=== PATIENT | female | born 1955 | race Caucasian/White ===

== ENCOUNTER 2016-05-05 11:11 | Outpatient (CLI) | payer OTHER | END 2016-05-05 11:12 | disposition home or self-care (01) | DX: R51 Headache (principal); F33.1 Major depressive disorder, recurrent, moderate; F41.9 Anxiety disorder, unspecified; G47.00 Insomnia, unspecified; F43.12 Post-traumatic stress disorder, chronic; F90.9 Attention-deficit hyperactivity disorder, unspecified type ==

== ENCOUNTER 2016-05-05 11:11 | Outpatient (CLI) | payer OTHER | END 2016-05-05 11:12 | disposition home or self-care (01) | DX: F33.1 Major depressive disorder, recurrent, moderate (principal); F41.9 Anxiety disorder, unspecified; G47.00 Insomnia, unspecified; F43.12 Post-traumatic stress disorder, chronic; F90.9 Attention-deficit hyperactivity disorder, unspecified type ==

== ENCOUNTER 2016-08-22 14:23 | Outpatient (CLI) | payer OTHER ==
--- NOTE | 2016-08-22 16:28 | Mammography Report ---
DIGITAL DIAGNOSTIC BILATERAL MAMMOGRAM: 08/22/2016 CLINICAL INDICATION: Intermittent left retroareolar pain. COMPARISON: 01/2015, 01/2014, 01/2007, 06/2006. TECHNIQUE: Bilateral CC, MLO, left true lateral views. A marker was placed at the site of maximal ten derness identified by the patient in the left periareolar breast. FINDINGS: The breasts again demonstrate heterogeneously dense fibroglandular parenchyma bilaterally. Coarse, typically benign calcifications are present. No suspicious masses, clustered microcalcificat ions, or regions of architectural distortion are identified. IMPRESSION: BENIGN FINDINGS. RECOMMENDATION: ROUTINE ANNUAL SCREENING UNLESS OTHERWISE CLINICALLY INDICATED. BIRADS CATEGORY 2-BENIGN FINDINGS. STANDARD QUALIFYING STATEMENTS 1. This examination was reviewed with the aid of Computer-Aided Detection (CAD). 2. A negative or benign imaging report should not delay biopsy if clinically suspicious findings are present. Consider surgical consultation if warranted. More than 5% of cancers are not identified by i maging. 3. Dense breasts may obscure an underlying neoplasm. JOB #: [id number] EXT JOB #:
== END 2016-08-22 14:24 | disposition home or self-care (01) ==
LOC: DI 14:23
PROVIDERS: ATTEND Physician Assistant
DX: N64.4 Mastodynia (principal); N63 Unspecified lump in breast
CPT/HCPCS: 77066

== ENCOUNTER 2016-10-30 09:47 | Outpatient (CLI) | payer OTHER | END 2016-10-30 09:48 | disposition home or self-care (01) | LOC: LAB.F 09:47 | PROVIDERS: ATTEND Psychiatry & Neurology Psychiatry | DX: F33.1 Major depressive disorder, recurrent, moderate (principal); F43.12 Post-traumatic stress disorder, chronic; F90.9 Attention-deficit hyperactivity disorder, unspecified type | CPT/HCPCS: 36415; 80178; 82565 ==

== ENCOUNTER 2016-12-08 12:19 | Outpatient (CLI) | payer OTHER ==
--- NOTE | 2016-12-08 15:18 | XRAY Report ---
TWO-VIEW LEFT SCAPULA: 12/08/2016 CLINICAL INDICATION: Pain. FINDINGS: Frontal and lateral views of the left scapula demonstrate no evidence of fracture. The vi sualized joint spaces are unremarkable. No radiopaque foreign body is seen in the soft tissues. IMPRESSION: NO EVIDENCE OF SCAPULAR FRACTURE. JOB #: [id number] EXT JOB #:[id number]
--- NOTE | 2016-12-08 15:19 | XRAY Report ---
TWO-VIEW LEFT SHOULDER: 12/08/2016 CLINICAL INDICATION: Pain. FINDINGS: AP and oblique views of the left shoulder demonstrate no evidence of fracture or dislocati on. The joint spaces are preserved. No radiopaque foreign body is seen in the soft tissues. IMPRESSION: NORMAL LEFT SHOULDER. JOB #: [id number] EXT JOB #:[id number]
== END 2016-12-08 12:20 | disposition home or self-care (01) ==
LOC: DI 12:19
PROVIDERS: ATTEND Nurse Practitioner Family
DX: M25.512 Pain in left shoulder (principal)

== ENCOUNTER 2017-08-13 14:01 | Outpatient (CLI) | payer OTHER ==
--- NOTE | 2017-08-16 07:10 | XRAY Report ---
THREE VIEW BILATERAL FEET: 08/13/2017 CLINICAL INDICATION: Pain. FINDINGS: AP, lateral, oblique views of bilateral feet are compared to previous left foot of 12/11/2015. Osteoarthritis of the left first metatarsophalangeal joint appears stable. There has been previous screw fusion of the right first metatarsophalangeal joint. No fracture or hardware complication is appreciated. Minimal plantar calcaneal spurring is present. IMPRESSION: STABLE OSTEOARTHRITIS OF THE LEFT FIRST METATARSOPHALANGEAL JOINT. SCREW FUSION OF THE RIGHT FIRST METATARSOPHALANGEAL JOINT. TD: 08/13/2017 15:50
== END 2017-08-13 14:02 | disposition home or self-care (01) ==
LOC: DI 14:01
PROVIDERS: ATTEND Podiatrist
DX: M19.072 Primary osteoarthritis, left ankle and foot (principal); M79.671 Pain in right foot

== ENCOUNTER 2017-09-07 12:22 | Outpatient (CLI) | END 2017-09-07 12:23 | disposition home or self-care (01) ==

== ENCOUNTER 2017-09-08 11:17 | Outpatient (CLI) | payer OTHER ==
--- NOTE | 2017-09-10 10:42 | Mammography Report ---
Procedure Date: 09/08/2017 Accession Number: [id number] / [id number] Procedure: NATALI - Screening Mammo Dig Bilat CPT Code: FULL RESULT: EXAM: Screening Mammo Dig Bilat DATE: 09/08/2017 11:32 AM CLINICAL HISTORY: 62-year-old with family history of breast cancer, history of benign biopsy for screening TECHNIQUE: Bilateral CC and MLO views were obtained. COMPARISON: 08/22/2016, 02/05/2015, 01/31/2014 FINDINGS: The breasts demonstrate heterogeneously dense fibroglandular parenchyma bilaterally. Coarse, typically benign calcifications are present. No suspicious masses, clustered microcalcifications, or regions of architectural distortion are identified. IMPRESSION: Benign findings RECOMMENDATION: Routine annual screening unless otherwise clinically indicated. BIRADS CATEGORY 2: Benign findings STANDARD QUALIFYING STATEMENTS: 1. This examination was reviewed with the aid of Computer-Aided Detection (CAD). 2. A negative or benign imaging report should not delay biopsy if clinically suspicious findings are present. Consider surgical consultation if warrented. More than 5% of cancers are not identified by imaging. 3. Dense breasts may obscure an underlying neoplasm.
== END 2017-09-08 11:18 | disposition home or self-care (01) ==
LOC: DI 11:17
PROVIDERS: ATTEND Physician Assistant
DX: Z12.31 Encounter for screening mammogram for malignant neoplasm of breast (principal); Z80.3 Family history of malignant neoplasm of breast
CPT/HCPCS: 77067

== ENCOUNTER 2017-12-07 11:54 | Outpatient (CLI) | payer OTHER ==
--- NOTE | 2017-12-07 16:09 | XRAY Report ---
Reason: BL HAND, ARM ELBOW PAIN Procedure Date: 12/07/2017 Accession Number: [id number] / [id number] Procedure: XR - Hand 3 View BILAT CPT Code: FULL RESULT: EXAMS: 1. Right Hand Radiography 2. Left Hand Radiography EXAM DATE: 12/07/2017 12:36 PM. CLINICAL HISTORY: BL HAND, ARM ELBOW PAIN. COMPARISON: None. TECHNIQUE: 3 views each hand. FINDINGS: Right: There is no fracture or dislocation. Bones appear qualitatively osteopenic. The patient is status post right trapeziectomy with mild soft tissue density in the region. There is approximately 3 mm of ulnar negative variance. Left: There is no fracture or dislocation. The patient is status post left trapeziectomy. There is approximately 2 mm of borderline negative ulnar deviation. IMPRESSION: Status post bilateral removal of the trapezium. Borderline ulnar negative deviation. RADIA
--- NOTE | 2017-12-07 16:43 | XRAY Report ---
Reason: BL HAND, ARM ELBOW PAIN Procedure Date: 12/07/2017 Accession Number: [id number] / [id number] Procedure: XR - Elbow 3 View BILAT CPT Code: FULL RESULT: EXAM: 1. RIGHT ELBOW RADIOGRAPHY 2. LEFT ELBOW RADIOGRAPHY EXAM DATE: 12/07/2017 12:36 PM. CLINICAL HISTORY: Bilateral hand, arm and elbow pain. COMPARISON: None. TECHNIQUE: 3 views each elbow. FINDINGS: Right: Bones: Normal. No fractures or bone lesions. Joints: Normal. No effusion. No subluxation. Soft Tissues: Normal. No soft tissue swelling. Left: Bones: Normal. No fractures or bone lesions. Joints: Normal. No effusion. No subluxation. Soft Tissues: Normal. No soft tissue swelling. IMPRESSION: Normal bilateral elbow radiography. RADIA
--- NOTE | 2017-12-07 16:43 | XRAY Report ---
Reason: BL HAND, ARM ELBOW PAIN Procedure Date: 12/07/2017 Accession Number: [id number] / [id number] Procedure: XR - Forearm BILAT CPT Code: FULL RESULT: EXAM: BILATERAL FOREARM RADIOGRAPHY EXAM DATE: 12/07/2017 12:36 PM. CLINICAL HISTORY: Bilateral hand, arm and elbow pain. COMPARISON: None. TECHNIQUE: 2 views. FINDINGS: Bones: Status post trapezium removal. No fractures or bone lesions. Joints: Normal. No effusions or subluxations in the visualized wrist or elbow joints. Soft Tissues: Normal. No soft tissue swelling. IMPRESSION: No acute fracture or dislocation. RADIA
--- NOTE | 2017-12-07 16:43 | XRAY Report ---
Reason: BL HAND, ARM ELBOW PAIN Procedure Date: 12/07/2017 Accession Number: [id number] / [id number] Procedure: XR - Wrist 3 View BILAT CPT Code: FULL RESULT: EXAM: BILATERAL WRIST RADIOGRAPHY EXAM DATE: 12/07/2017 12:36 PM. CLINICAL HISTORY: Bilateral hand, arm, and elbow pain. COMPARISON: None. TECHNIQUE: 3 views. FINDINGS: There is no fracture or dislocation and there is no bone lesion. The trapezium has been removed bilaterally. There is bilateral borderline negative ulnar deviation, approximately 3 mm. IMPRESSION: Bilateral borderline ulnar negative deviation status post bilateral trapezium removal. RADIA
== END 2017-12-07 11:55 | disposition home or self-care (01) ==
LOC: DI 11:54
PROVIDERS: ATTEND Nurse Practitioner Family
DX: M79.642 Pain in left hand (principal); M79.641 Pain in right hand; M25.522 Pain in left elbow; M25.521 Pain in right elbow

== ENCOUNTER 2018-01-03 10:18 | Emergency (ER) | payer OTHER ==
[2018-01-03 11:03] LABS: BASOPHILS # (AUTO) 0.1 10^3/uL (0.0-0.1); BASOPHILS % (AUTO) 1.9 %; EOSINOPHILS # (AUTO) 0.1 10^3/uL (0.0-0.7); EOSINOPHILS % (AUTO) 3.4 %; HGB - HEMOGLOBIN 12.7 g/dL (12.0-16.0); LYMPHOCYTES % (AUTO) 24.6 %; MEAN CORPUSCULAR HEMOGLOBIN 32.4 pg (27.0-31.0); MEAN CORPUSCULAR HGB CONC 34.6 g/dL (32.0-36.0); MEAN CORPUSCULAR VOLUME 93.7 fL (81.0-99.0); MEAN PLATELET VOLUME 7.5 fL (7.9-10.8); MONOCYTES # (AUTO) 0.4 10^3/uL (0.0-1.0); MONOCYTES % (AUTO) 9.3 %; NEUTROPHILS # (AUTO) 2.5 10^3/uL (1.5-6.6); NEUTROPHILS % (AUTO) 60.8 %; PLT - PLATELET COUNT 224 10^3/uL (130-450); RED BLOOD COUNT 3.91 10^6/uL (4.20-5.40); RED CELL DISTRIBUTION WIDTH 13.2 % (12.0-15.0); WHITE BLOOD COUNT 4.1 x10^3/uL (4.8-10.8)
[2018-01-03 11:24] LABS: ALBUMIN 4.1 g/dL (3.2-5.5); ALBUMIN/GLOBULIN RATIO 1.5 (1.0-2.2); BILIRUBIN,TOTAL 0.5 mg/dL (0.2-1.0); CALCIUM 9.2 mg/dL (8.5-10.3); CREATININE 0.8 mg/dL (0.4-1.0); TOTAL PROTEIN 6.8 g/dL (6.7-8.2)
[2018-01-03 12:20] LABS: BILIRUBIN,URINE NEGATIVE (NEGATIVE); GLUCOSE, URINE (UA) NEGATIVE (NEGATIVE); KETONES,URINE (UA) NEGATIVE (NEGATIVE); LEUKOCYTE ESTERASE, URINE NEGATIVE (NEGATIVE); NITRITE,URINE NEGATIVE (NEGATIVE); OCCULT BLOOD,URINE TRACE-LYSE (NEGATIVE); PROTEIN,URINE NEGATIVE (NEGATIVE); UROBILINOGEN,URINE 0.2 (NORMAL) E.U./dL (NORMAL)
[2018-01-03 12:28] LABS: CLARITY,URINE CLEAR (CLEAR)
[2018-01-03 12:39] VITALS: BP 124/70
--- NOTE | 2018-01-03 13:09 | ED Physician Documentation ---
PD HPI ABD PAIN - Stated complaint Stated Complaint: ABD PX/BLOOD IN STOOL - Chief complaint Chief Complaint: Abd Pain - History obtained from History obtained from: Patient - History of Present Illness Timing - onset: Other (For the last few months she has been taking a lot of ibuprofen because of arm pain related to a surgery she had on her right arm. Over the last 5 days for she developed sudden onset headache which cleared and then developed stomach upset with bloating and fullness, feeling like food is coming up into her chest associated with now 2 days of dark and tarry stools, but she started pepto about that time. She is never had an ulcer. She is never had upper endoscopy. She has had a colonoscopy within the year that per her report was normal. She does not drink alcohol.) Review of Systems Constitutional: denies: Fever, Chills Cardiac: denies: Chest pain / pressure, Palpitations Respiratory: denies: Dyspnea, Cough GI: reports: Abdominal Pain, Bloody / black stool. 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 05/28/15 Propranolol [Inderal] 20 mg DAILY 05/28/15 05/28/15 tiZANidine [Zanaflex] 2 tab QPM 05/28/15 05/28/15 traZODone [Desyrel] 50 mg DAILY 05/28/15 05/28/15 Omeprazole 20 mg PO DAILY #30 tablet. 01/03/18 - Allergies Allergies/Adverse Reactions: Allergies Allergy/AdvReac Type Severity Reaction Status Date / Time No Known Drug Allergies Allergy Verified 05/11/14 01:39 - Social History Does the pt smoke?: No Does the pt drink ETOH?: Yes - POLST Patient has POLST: No PD ED PE NORMAL - Vitals Vital signs reviewed: Yes - General General: Alert and oriented X 3, No acute distress - HEENT HEENT: PERRL, EOMI - Neck Neck: Supple, no meningeal sign, No bony TTP - Cardiac Cardiac: RRR, No murmur - Respiratory Respiratory: No respiratory distress, Clear bilaterally - Abdomen Abdomen: Soft, Non tender - Rectal Rectal: Other (with Deepa RN, dark but guaiac neg stool, QC pass) - Back Back: No CVA TTP, No spinal TTP - Derm Derm: Normal color, Warm and dry - Extremities Extremities: No edema, No calf tenderness / cord - Neuro Neuro: Alert and oriented X 3, Normal speech - Psych Psych: Normal mood, Normal affect Results - Vitals Vitals: Vital Signs - 24 hr 01/03/18 01/03/18 10:27 12:37 Temperature 36.4 C L 36.3 C L Heart Rate 71 70 Respiratory 14 14 Rate Blood Pressure 122/73 124/70 O2 Saturation 100 100 Oxygen O2 Source Room air - Labs Labs: Laboratory Tests 01/03/18 01/03/18 01/03/18 10:55 10:55 10:55 WBC 4.1 L RBC 3.91 L Hgb 12.7 Hct 36.6 L MCV 93.7 MCH 32.4 H MCHC 34.6 RDW 13.2 Plt Count 224 MPV 7.5 L Neut # (Auto) 2.5 Lymph # (Auto) 1.0 L [place] # (Auto) 0.4 Eos # (Auto) 0.1 Baso # (Auto) 0.1 Absolute Nucleated RBC 0.00 Nucleated RBC % 0.0 Sodium 138 Potassium 3.7 Chloride 102 Carbon Dioxide 30 Anion Gap 6.0 BUN 10 Creatinine 0.8 Estimated GFR (MDRD) 72 L Glucose 86 Calcium 9.2 Total Bilirubin 0.5 AST 18 ALT 15 Alkaline Phosphatase 56 Total Protein 6.8 Albumin 4.1 Globulin 2.7 Albumin/Globulin Ratio 1.5 Lipase 23 Urine Color Urine Clarity Urine pH Ur Specific [place] Urine Protein Urine Glucose (UA) Urine Ketones Urine Occult Blood Urine Nitrite Urine Bilirubin Urine Urobilinogen Ur Leukocyte Esterase Ur Microscopic Review Urine Culture Comments [place] Blood Type O POSITIVE Antibody Screen NEGATIVE 01/03/18 01/03/18 01/03/18 12:16 13:08 13:08 WBC RBC Hgb 12.7 Hct 37.2 MCV MCH MCHC RDW Plt Count MPV Neut # (Auto) Lymph # (Auto) [place] # (Auto) Eos # (Auto) Baso # (Auto) Absolute Nucleated RBC Nucleated RBC % Sodium Potassium Chloride Carbon Dioxide Anion Gap BUN Creatinine Estimated GFR (MDRD) Glucose Calcium Total Bilirubin AST ALT Alkaline Phosphatase Total Protein Albumin Globulin Albumin/Globulin Ratio Lipase Urine Color YELLOW Urine Clarity CLEAR Urine pH 8.0 H Ur Specific [place] 1.010 Urine Protein NEGATIVE Urine Glucose (UA) NEGATIVE Urine Ketones NEGATIVE Urine Occult Blood TRACE-LYSE Urine Nitrite NEGATIVE Urine Bilirubin NEGATIVE Urine Urobilinogen 0.2 (NORMAL) Ur Leukocyte Esterase NEGATIVE Ur Microscopic Review NOT INDICATED Urine Culture Comments NOT INDICATED [place] 0.44 Blood Type Antibody Screen - Rads (name of study) Ct Head Radiology: EMP read contemporaneously (Normal) PD MEDICAL DECISION MAKING - ED course ED course: 62-year-old woman that presents with symptoms that sound like NSAID induced gastritis but it was preceded by a sudden onset headache which is resolved. It is concerning that she has dark stools but she is guaiac negative now with dark stool in the vault suggesting that it is probably due to Pepto-Bismol. Departure - Departure Disposition: 01 Home, Self Care Clinical Impression: Abdominal pain Qualifiers: Abdominal location: epigastric Qualified Code(s): R10.13 - Epigastric pain Gastritis Qualifiers: Gastritis type: unspecified gastritis Gastritis bleeding: without bleeding Headache Qualifiers: Headache type: unspecified Headache chronicity pattern: acute headache Intractability: not intractable Qualified Code(s): R51 - Headache Condition: Good Record reviewed to determine appropriate education?: Yes Instructions: ED Gastritis Prescriptions: Omeprazole 20 mg PO DAILY #30 tablet. Comments: As discussed there is no evidence of bleeding, the dark stools are probably from the Pepto-Bismol. The symptoms themselves are probably from long-term ibuprofen use. Please stop using ibuprofen, you can use Tylenol instead. The Prilosec should help after a few days. Follow-up with your doctor for further evaluation and treatment. Return if worse.
[2018-01-03] MEDS ORDERED: PANTOPRAZOLE 40 MG TABLET PO STA (13:14)
[2018-01-03 13:26] LABS: HGB - HEMOGLOBIN 12.7 g/dL (12.0-16.0)
[2018-01-03 13:53] LABS: LITHIUM 0.44 mmol/L
--- NOTE | 2018-01-03 14:12 | CT Report ---
Reason: resolved sudden headache Procedure Date: 01/03/2018 Accession Number: [id number] / [id number] Procedure: CT - Head W/O CPT Code: FULL RESULT: EXAM: CT HEAD EXAM DATE: 01/03/2018 01:28 PM. CLINICAL HISTORY: Resolved sudden headache. COMPARISON: None. TECHNIQUE: Multiaxial CT images were obtained from the foramen magnum to the vertex. Reformats: Sagittal and coronal. IV contrast: None. In accordance with CT protocol optimization, one or more of the following dose reduction techniques were utilized for this exam: automated exposure control, adjustment of mA and/or KV based on patient size, or use of iterative reconstructive technique. FINDINGS: Parenchyma: No intraparenchymal hemorrhage. No evidence of mass, midline shift, or CT findings of infarction. Cerda-white differentiation is distinct. Extraaxial Spaces: Normal for age. No subdural or epidural collections identified. Ventricles: Normal in size and position. Sinuses and Orbits: Imaged paranasal sinuses, orbits, and mastoids show no significant abnormality. Bones: No evidence of fracture or calvarial defect. Other: None. IMPRESSION: No acute intracranial abnormality. RADIA
== END 2018-01-03 14:43 | disposition home or self-care (01) ==
LOC: ED 10:18
DX: K29.70 Gastritis, unspecified, without bleeding (principal); R51 Headache; Z79.1 Long term (current) use of non-steroidal anti-inflammatories (NSAID)
CPT/HCPCS: 36415; 70450; 80053; 80178; 81003; 83690; 85014; 85018; 85025; 86850; 86900; 86901; 93005; 99283; A9270; 81001; 87086

== ENCOUNTER 2018-03-22 08:00 | Outpatient (CLI) | payer OTHER | END 2018-03-22 23:59 | disposition home or self-care (01) | LOC: LAB.R 08:00 | PROVIDERS: ATTEND Registered Nurse | DX: R19.5 Other fecal abnormalities (principal) | CPT/HCPCS: 82710 ==

== ENCOUNTER 2018-06-29 13:45 | Outpatient (CLI) | payer OTHER ==
[2018-06-29 18:28] LABS: LITHIUM 0.35 mmol/L
== END 2018-06-29 13:46 | disposition home or self-care (01) ==
LOC: LAB.F 13:45
PROVIDERS: ATTEND Psychiatry & Neurology Psychiatry
DX: F33.9 Major depressive disorder, recurrent, unspecified (principal); F43.10 Post-traumatic stress disorder, unspecified; F90.9 Attention-deficit hyperactivity disorder, unspecified type; G47.00 Insomnia, unspecified
CPT/HCPCS: 36415; 80178

== ENCOUNTER 2018-09-09 16:07 | Emergency (ER) | payer OTHER ==
--- NOTE | 2018-09-09 16:17 | ED Physician Documentation ---
History of Present Illness - Stated complaint Stated Complaint: LT HIP PX - Chief complaint Chief Complaint: Ext Problem - History obtained from History obtained from: Patient - History of Present Illness Timing: Yesterday - Additonal information Additional information: Patient is a 63-year-old female presenting with left hip pain after walking up her stairs last night. Patient denies any fall or trauma, but reports that she felt it "slip".Patient reports swelling to the area that has now resolved but no other overlying skin changes. Patient reports that she has been able to bear weight, however, with pain. Patient denies other sensation, strength, or range of motion changes to the left lower extremity. Patient also denies any complications with urination or bowel movements. Patient denies abdominal pain. Patient was seen her primary care physician earlier today and directed to the ED for further evaluation. No other improving or worsening factors noted. 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 05/28/15 Propranolol [Inderal] 20 mg DAILY 05/28/15 05/28/15 tiZANidine [Zanaflex] 2 tab QPM 05/28/15 05/28/15 traZODone [Desyrel] 50 mg DAILY 05/28/15 05/28/15 Omeprazole 20 mg PO DAILY #30 tablet. 01/03/18 Acetaminophen/Cod 300/30 [Tylenol 1 each PO Q4-6H PRN #12 tablet 09/09/18 #3] - Allergies Allergies/Adverse Reactions: Allergies Allergy/AdvReac Type Severity Reaction Status Date / Time acetaminophen [From Vicodin] Allergy Itching Verified 09/09/18 16:14 hydrocodone [From Vicodin] Allergy Itching Verified 09/09/18 16:14 meperidine [From Demerol] Allergy Itching Verified 09/09/18 16:14 morphine Allergy Itching Verified 09/09/18 16:14 - Social History Does the pt smoke?: No Does the pt drink ETOH?: Yes - POLST Patient has POLST: No PD ED PE NORMAL - Vitals Vital signs reviewed: Yes - General General: Alert and oriented X 3, No acute distress, Well developed/nourished - HEENT HEENT: Atraumatic, Moist mucous membranes - Cardiac Cardiac: RRR, No murmur - Respiratory Respiratory: No respiratory distress, Clear bilaterally - Abdomen Abdomen: Soft, Non tender, Non distended, Other (Pelvis stable and nontender) - Derm Derm: Normal color, Warm and dry, No rash - Extremities Extremities: No deformity, Normal ROM s pain, Other (Mild decreased ROM at left hip due to pain). No: No tenderness to palpate (Mildly tender to the left greater trochanter) - Neuro Neuro: Alert and oriented X 3, No motor deficit, No sensory deficit - Psych Psych: Normal mood, Normal affect Results - Vitals Vitals: Vital Signs - 24 hr 09/09/18 09/09/18 16:08 17:30 Temperature 36.6 C 36.8 C Heart Rate 69 60 Respiratory 14 16 Rate Blood Pressure 154/75 H 148/80 H O2 Saturation 100 100 Oxygen O2 Source Room air PD MEDICAL DECISION MAKING - ED course Complexity details: reviewed results, re-evaluated patient, considered differential, d/w patient ED course: Patient presenting with left hip discomfort and concern for a slipping sensation without any particular fall or trauma. Do not find any overlying skin changes to the area including ecchymosis, swelling, rash, or erythema. Have low suspicion for joint infection at this time. Patient is bearing weight, walking, and has decent range of motion. Also have low suspicion for fracture dislocation, will obtain plain films to further evaluate. Plain films returned unremarkable. Patient may also be experiencing muscle strain or radiculopathy. Have low suspicion for back issues including vertebral or spinal cord, as well as cauda equina given lack of incontinence, sensation changes to groin or leg. Patient does not tolerate pain medications well, except for Tylenol 3 which was provided in the ED and prescription given for home. Discussed other supportive cares, return precautions, and follow-up. Patient voiced understanding and is comfortable with discharge plan. Departure - Departure Disposition: 01 Home, Self Care Clinical Impression: Hip pain, left Condition: Good Instructions: ED Strain Muscle Ext Follow-Up: Olesya Dewitt PA [Primary Care Provider] - Within 3 Days Prescriptions: Acetaminophen/Cod 300/30 [Tylenol #3] 1 each PO Q4-6H PRN #12 tablet PRN Reason: Pain Comments: Take Tylenol 3 as prescribed. Please be aware of taking any additional Tylenol and not going over the maximum daily dose of Tylenol. Recommend taking with small amount of food to avoid upset stomach. Also recommend stretching, massage, heat application and follow-up with your primary care physician in the next 2 to 3 days. Return to ED sooner if experience new injury, worsening symptoms, or have other concerns.
--- NOTE | 2018-09-09 17:29 | XRAY Report ---
Reason: pain in left hip and greater trochanter Procedure Date: 09/09/2018 Accession Number: [id number] / [id number] Procedure: XR - Hip w/Pelvis 2-3V LT CPT Code: FULL RESULT: EXAM: LEFT HIP RADIOGRAPHY EXAM DATE: 09/09/2018 04:53 PM. CLINICAL HISTORY: Pain in left hip and greater trochanter. COMPARISON: HIP 2 VIEW RT 04/06/2013 10:01 AM. TECHNIQUE: 2 views. FINDINGS: Bones: No acute fractures. Joints: No dislocation. The hip joint space is preserved. Soft Tissues: Unremarkable IMPRESSION: No acute radiographic abnormalities. RADIA
[2018-09-09] MEDS ORDERED: ACETAMINOPHEN/CODEINE 300 MG/30 MG TABLET PO STA (17:40)
[2018-09-09 17:51] VITALS: BP 134/70
== END 2018-09-09 17:54 | disposition home or self-care (01) ==
LOC: ED 16:07
DX: M25.552 Pain in left hip (principal)
CPT/HCPCS: 73502; 99283; A9270

== ENCOUNTER 2018-09-23 08:14 | Outpatient (CLI) | payer OTHER ==
--- NOTE | 2018-09-27 08:25 | DEXA Report ---
Reason: ASYMPTOMATIC MENOPAUSAL STATE Procedure Date: 09/23/2018 Accession Number: [id number] / [id number] Procedure: DEX - Dexa Spine and/or Hip CPT Code: FULL RESULT: EXAM: Dexa Spine and/or Hip DATE: 09/23/2018 8:36 AM CLINICAL HISTORY: ASYMPTOMATIC MENOPAUSAL STATE TECHNIQUE: Dual energy x-ray absorptiometry (DXA) was performed on a [employer] System. Regions measured are the AP Spine, femoral neck, and if needed forearm. COMPARISON: None. In accordance with the International Society for Clinical Densitometry (ISCD) guidelines, data from previous exams may be reanalyzed using current recommendations and techniques. This is done to allow a more accurate basis for comparison with the current study. FINDINGS: The data for the lumbar spine is as follows: BMD (g/cm/cm) T-SCORE Z-SCORE REGION L1 0.702 -3.6 -1.6 L2 0.759 -3.7 -1.7 L3 0.907 -2.4 -0.5 L4 0.803 -3.3 -1.4 TOTAL 0.795 -3.2 -1.3 NOTE: All evaluable vertebrae are used for classification The data for the hip is as follows: BMD (g/cm/cm) T-SCORE Z-SCORE REGION Neck 0.718 -2.3 -0.6 TOTAL 0.749 -2.1 -0.6 NOTE: The femoral neck or total proximal femur, whichever is lowest, is used for classification. IMPRESSION: THE WHO CLASSIFICATION BASED ON THE INTERNATIONAL REFERENCE STANDARD IS OSTEOPOROSIS. THE FRACTURE RISK IS HIGH. RECOMMENDATION: Patients with diagnosis of osteoporosis or osteopenia should have regular bone mineral density assessment. For those eligible for Medicare, routine testing is allowed once every 2 years. Testing frequency can be increased for patients who have rapidly progressing disease or for those who are receiving medical therapy to restore bone mass. COMMENT: World Health Organization (WHO) definitions for osteoporosis and osteopenia: NORMAL BMD: T-score at -1.0 or higher, fracture risk is low OSTEOPENIA BMD: T-score between -1.0 and -2.5, fracture risk is increased. OSTEOPOROSIS BMD: T-score at -2.5 or lower, fracture risk is high. National Osteoporosis Foundation recommends: 1. Obtain adequate dietary calcium (at least 1200 mg per day) and vitamin D (400-800 international units per day). 2. Participate, as appropriate, in regular weightbearing and muscle-strengthening exercise. 3. Avoid tobacco use and reduce alcohol and caffeine intake. 4. For more detailed information see the website at www.NOF.org.
== END 2018-09-23 08:15 | disposition home or self-care (01) ==
LOC: DI 08:14
PROVIDERS: ATTEND Nurse Practitioner Family
DX: M81.0 Age-related osteoporosis without current pathological fracture (principal); Z78.0 Asymptomatic menopausal state
CPT/HCPCS: 77080

== ENCOUNTER 2019-01-07 10:09 | Outpatient (CLI) | payer OTHER ==
--- NOTE | 2019-01-07 11:50 | Mammography Report ---
Reason: FREE MAMMO FOR CERTIFICATION PER OXANA Procedure Date: 01/07/2019 Accession Number: [id number] / [id number] Procedure: [facility]GS - Screening Mammo Dig Bilat CPT Code: FULL RESULT: EXAM: Screening Mammo Dig Bilat DATE: 01/07/2019 10:39 AM CLINICAL HISTORY: Routine screening TECHNIQUE: (B) - Bilateral CC and MLO views were obtained. COMPARISON: 09/08/2017, 08/22/2016, 02/05/2015, 01/31/2014. PARENCHYMAL PATTERN: (D) - The breasts demonstrate heterogeneously dense fibroglandular parenchyma bilaterally. FINDINGS: No significant interval change. There are no suspicious masses, calcifications, or areas of distortion. IMPRESSION: Negative examination. BI-RADS category 1. RECOMMENDATION: (ANNUAL) - Recommend routine annual screening mammography. BI-RADS CATEGORY: (1) - Negative. STANDARD QUALIFYING STATEMENTS: 1. This examination was not reviewed with the aid of Computer-Aided Detection (CAD). 2. A negative or benign imaging report should not preclude biopsy if clinically suspicious findings are present. 3. Dense breasts may obscure an underlying neoplasm. 4. This examination was reviewed without the aid of 3D breast imaging (tomosynthesis).
== END 2019-01-07 10:10 | disposition home or self-care (01) ==
LOC: DI.S 10:09
PROVIDERS: ATTEND Physician Assistant
DX: Z12.31 Encounter for screening mammogram for malignant neoplasm of breast (principal)
CPT/HCPCS: 77067

== ENCOUNTER 2019-02-08 11:11 | Outpatient (CLI) | payer OTHER ==
[2019-02-08 17:33] LABS: ALBUMIN 4.6 g/dL (3.2-5.5); ALBUMIN/GLOBULIN RATIO 1.7 (1.0-2.2); BILIRUBIN,TOTAL 0.6 mg/dL (0.2-1.0); CALCIUM 9.9 mg/dL (8.5-10.3); CREATININE 1.1 mg/dL (0.4-1.0); TOTAL PROTEIN 7.3 g/dL (6.7-8.2)
[2019-02-08 17:43] LABS: THYROID STIMULATING HORMONE 1.33 uIU/mL (0.34-5.60)
[2019-02-08 17:45] LABS: FREE T4 (FREE THYROXINE) 0.94 ng/dL (0.58-1.64)
[2019-02-09 06:13] LABS: ESTRADIOL <15 pg/mL; PROGESTERONE 2.9 ng/mL
== END 2019-02-08 11:12 | disposition home or self-care (01) ==
LOC: LAB.S 11:11
PROVIDERS: ATTEND Naturopath
DX: Z00.00 Encounter for general adult medical examination without abnormal findings (principal); E03.9 Hypothyroidism, unspecified; E34.9 Endocrine disorder, unspecified; R53.83 Other fatigue; N95.1 Menopausal and female climacteric states; R68.82 Decreased libido
CPT/HCPCS: 36415; 80053; 82306; 82626; 82670; 84144; 84439; 84443; 84481

== ENCOUNTER 2019-03-29 13:07 | Outpatient (CLI) | payer MEDICARE ==
--- NOTE | 2019-03-29 15:49 | Ultrasound Report ---
Reason: FAM HX OF OVARIAN CANCER Procedure Date: 03/29/2019 Accession Number: [id number] / [id number] Procedure: US - Pelvic w/Transvaginal CPT Code: Final Report FULL RESULT: EXAM: PELVIC ULTRASOUND EXAM DATE: 03/29/2019 02:41 PM. CLINICAL HISTORY: Family history of ovarian cancer. COMPARISON: None. TECHNIQUE: Realtime transabdominal pelvic scan performed to identify the uterus and adnexa and as an overview of other pelvic structures, followed by transvaginal scan to provide greater detail of the uterus and adnexa, with static image documentation. FINDINGS: Uterus: 7.9 x 3.6 x 4.7 cm, volume 72 cc. Anteverted position. The uterine body is within normal limits. Masses: None within the uterine body. Endometrium: 10 mm. Normal within the body. Cervix: Apparently arising from the endocervix is a heterogeneous partially hyperechoic partially cystic mass with apparent internal vascularity by color Doppler which measures at least 1.5 x 1.5 x 1.2 cm and appears to have a stalk arising from the cervix. Right Ovary: 2.2 x 1.0 x 1.3 cm, volume 1.4 cc. Normal echotexture and blood flow. Left Ovary: 1.3 x 1.0 x 1.2 cm, volume 0.8 cc. A solid echogenic appearing 0.8 cm focus within the left ovary with echogenic shadowing is noted, possibly a calcification but sonographically indeterminate. Free Fluid: None. Other: None. IMPRESSION: Apparent endocervical mass as described. Recommend tissue sampling. Indeterminate echogenic focus within the left ovary. RADIA
== END 2019-03-29 13:08 | disposition home or self-care (01) ==
LOC: DI 13:07
PROVIDERS: ATTEND Obstetrics & Gynecology
DX: R93.89 Abnormal findings on diagnostic imaging of other specified body structures (principal); Z80.41 Family history of malignant neoplasm of ovary
CPT/HCPCS: 76830; 76856

== ENCOUNTER 2019-03-30 10:02 | Outpatient (CLI) | payer MEDICARE ==
[2019-03-30 16:59] LABS: BASOPHILS # (AUTO) 0.1 10^3/uL (0.0-0.1); BASOPHILS % (AUTO) 1.3 %; EOSINOPHILS # (AUTO) 0.1 10^3/uL (0.0-0.7); HGB - HEMOGLOBIN 12.2 g/dL (12.0-16.0); LYMPHOCYTES # (AUTO) 1.5 10^3/uL (1.5-3.5); LYMPHOCYTES % (AUTO) 32.6 %; MEAN CORPUSCULAR HEMOGLOBIN 31.4 pg (27.0-31.0); MEAN CORPUSCULAR HGB CONC 31.9 g/dL (32.0-36.0); MEAN CORPUSCULAR VOLUME 98.2 fL (81.0-99.0); MONOCYTES # (AUTO) 0.5 10^3/uL (0.0-1.0); MONOCYTES % (AUTO) 10.2 %; NEUTROPHILS # (AUTO) 2.4 10^3/uL (1.5-6.6); NEUTROPHILS % (AUTO) 52.9 %; PLT - PLATELET COUNT 206 10^3/uL (130-450); RED BLOOD COUNT 3.89 10^6/uL (4.20-5.40); RED CELL DISTRIBUTION WIDTH 12.6 % (12.0-15.0); WHITE BLOOD COUNT 4.6 x10^3/uL (4.8-10.8)
[2019-03-30 17:19] LABS: ALBUMIN 4.2 g/dL (3.2-5.5); ALBUMIN/GLOBULIN RATIO 1.7 (1.0-2.2); ALKALINE PHOSPHATASE 43 IU/L (42-121); ALT ALANINE AMINOTRANSFERASE 19 IU/L (10-60); AST ASPARTATE AMINOTRANSFERASE 18 IU/L (10-42); BILIRUBIN,TOTAL 0.6 mg/dL (0.2-1.0); BUN - BLOOD UREA NITROGEN 22 mg/dL (6-20); CALCIUM 9.1 mg/dL (8.5-10.3); CARBON DIOXIDE - CO2 28 mmol/L (21-32); CHLORIDE 102 mmol/L (101-111); CHOL/HDL RATIO 2.5 (<4.4); CHOLESTEROL 165 mg/dL; CREATININE 0.9 mg/dL (0.4-1.0); GFR - MDRD 63 (>89); GLUCOSE 92 mg/dL (70-100); HDL CHOLESTEROL 65 mg/dL; LDL CHOLESTEROL,CALCULATED 89 mg/dL; LDL/HDL RATIO 1.4 (<4.4); SODIUM 135 mmol/L (135-145); TOTAL PROTEIN 6.7 g/dL (6.7-8.2); VLDL CHOLESTEROL 11 mg/dL
[2019-03-30 17:27] LABS: THYROID STIMULATING HORMONE 1.16 uIU/mL (0.34-5.60)
[2019-03-30 17:29] LABS: FREE T4 (FREE THYROXINE) 0.8 ng/dL (0.58-1.64)
== END 2019-03-30 10:03 | disposition home or self-care (01) ==
LOC: LAB.S 10:02
PROVIDERS: ATTEND Physician Assistant Medical
DX: Z51.81 Encounter for therapeutic drug level monitoring (principal); Z79.899 Other long term (current) drug therapy; R41.3 Other amnesia; Z83.49 Family history of other endocrine, nutritional and metabolic diseases; E03.9 Hypothyroidism, unspecified
CPT/HCPCS: 36415; 80053; 80061; 83721; 84439; 84443; 84481; 85025

== ENCOUNTER 2019-04-18 10:21 | Outpatient (CLI) | payer MEDICARE ==
--- NOTE | 2019-04-18 13:30 | MRI Report ---
Reason: TRANSIENT GLOBAL AMNESIA Procedure Date: 04/18/2019 Accession Number: [id number] / [id number] Procedure: MRI - Brain W/O CPT Code: Preliminary Report FULL RESULT: EXAM: MRI BRAIN WITHOUT CONTRAST EXAM DATE: 04/18/2019 11:38 AM. CLINICAL HISTORY: TRANSIENT GLOBAL AMNESIA. COMPARISON: Prior CT head 01/03/2018, prior MRI brain 11/25/2005. TECHNIQUE: Multiplanar, multisequence T1-weighted and fluid-sensitive MR sequences of the brain were performed. Sequences optimized for routine evaluation. Other: None. IV Contrast: None. Findings: Relevant images are indicated (image number, series number). There is no interval acute/subacute ischemic change in the brain. There is no hemosiderin deposition present in the brain. Limited suprahyoid neck negative. Basal cisterns, bilateral IACs, bilateral Meckel's caves are clear. Orbital contents negative. Paranasal sinuses, mastoid air cells demonstrate no fluid signal. There is no significant cortical atrophy. Pituitary, midbrain, craniocervical junction, limited upper cervical cord negative. Mild scattered periventricular, subcortical white matter disease, mildly progressed in the interval compared with MRI brain 11/25/2005. Extraocular muscles, optic nerves, orbital apex, optic chiasm negative. Impressions: 1. No interval acute/subacute ischemic change. 2. Interval mild progression of overall mild scattered nonspecific white matter disease could be related to any history of headaches, also correlate with any history of diabetes, hypertension, hypercholesterolemia. 3. Remaining brain/orbits are unremarkable. RADIA
== END 2019-04-18 10:22 | disposition home or self-care (01) ==
LOC: DI 10:21
PROVIDERS: ATTEND Physician Assistant Medical
DX: R90.82 White matter disease, unspecified (principal); Z86.69 Personal history of other diseases of the nervous system and sense organs
CPT/HCPCS: 70551

== ENCOUNTER 2019-04-27 10:22 | Day surgery (SDC) | payer MEDICARE ==
--- NOTE | 2019-04-25 10:14 | CONSULTATION NOTE ---
Consultation Report: Call for anesthesia consult for 64yo F for hysteroscopy, D&C, polpectomy. Hx includes murmur (EKG SR, HR regular on ascultation, no murmur assessed at this point) GERD (pt states well controlled, rare to have heartburn). Pt instructed on NPO status, meds to take, and what to expect post-operatively.
[2019-04-27] MEDS ORDERED: LACTATED RINGERS 1,000 ML IV ONE ×2 (10:30→13:40)
--- NOTE | 2019-04-27 12:11 | ANESTHESIA ---
Pre-Anesthesia VS, & Labs - Diagnosis thickened endometrium - Procedure myosure hysteroscopy, d and C, polypectomy Vital Signs: Temp Pulse Resp BP Pulse Ox 36.7 C 71 18 134/83 H 100 04/27/19 10:33 04/27/19 10:33 04/27/19 10:33 04/27/19 10:33 04/27/19 10:33 Height 5 ft 4 in Weight (kg) 54.1 kg Body Mass Index 20.9 - NPO >8 hours - Is Patient ?: No Home Medications and Allergies Home Medications: Ambulatory Orders Bupropion HCl [Bupropion Xl] 150 mg PO DAILY 04/25/19 Calcium Carbonate/Vitamin D3 [Calcium 500-Vit D3 200 Tablet] 1 each PO BID 04/25/19 Methylphenidate HCl [Concerta] 36 mg PO DAILY 04/25/19 Thyroid Plus 130 mg PO DAILY 04/25/19 [place] Carbonate 1 tab PO QPM 05/28/15 traZODone [Desyrel] 50 mg PO QPM 05/28/15 Bupropion HCl [Bupropion Xl] 150 mg PO DAILY 04/25/19 Calcium Carbonate/Vitamin D3 [Calcium 500-Vit D3 200 Tablet] 1 each PO BID 04/25/19 Methylphenidate HCl [Concerta] 36 mg PO DAILY 04/25/19 Thyroid Plus 130 mg PO DAILY 04/25/19 Allergies/Adverse Reactions: Allergies Allergy/AdvReac Type Severity Reaction Status Date / Time hydrocodone [From Vicodin] Allergy Itching, Verified 04/25/19 10:50 rash meperidine [From Demerol] Allergy Itching, Verified 04/25/19 10:50 rash morphine Allergy Itching, Verified 04/25/19 10:50 rash Anes History & Medical History - Anesthetic History Anesthesia Complications: reports: No previous complications Family history of Malignant Hyperthermia: Denies - Medical History Cardiovascular: reports: Hypertension, Murmur Pulmonary: reports: None Gastrointestinal: reports: GERD, Ulcerative colitis Urinary: reports: None Musculoskeletal: reports: Osteoarthritis Endocrine/Autoimmune: reports: HyPOthyroidism Blood Disorders: reports: None Skin: reports: Other Smoking Status: Never smoker - Surgical History General: Appendectomy Gynecologic: section Orthopedic: Carpal Tunnel surgery, Other Exam General: Alert Plan Anesthesia Type: General Consent for Procedure(s) Verified and Reviewed: Yes Code Status: Attempt Resuscitation ASA classification: 2-Mild systemic disease Is this case an emergency?: No
[2019-04-27] MEDS ORDERED: LIDOCAINE 1%-EPI 1:100000 20 ML MDV ONE (12:20)
[2019-04-27] MEDS ORDERED: BUPIVACAINE 0.25% PF 10 ML VIAL ONE (12:20)
[2019-04-27] MEDS ORDERED: BUPIVACAINE 0.25% PF 10 ML VIAL SUBQ ONE ×2 (12:58)
[2019-04-27] MEDS ORDERED: LIDOCAINE 1%-EPI 1:100000 20 ML MDV SUBQ ONE ×2 (12:58)
--- NOTE | 2019-04-27 13:23 | OPERATIVE REPORT ---
Operative Report - General Procedure Date: 04/27/19 Planned Procedure: HSC D&C Pre-Op Diagnosis: intracervical mass Post Op Diagnosis: normal uterus - Procedure Note Primary Surgeon: Ted Anesthesia Technique: General LMA Pathology: endometrial curettings IV Fluids (mL): 500 Estimated Blood Loss (mL): 2 Findings: Normal uterine cavity and cervical cavity. Complications: none
[2019-04-27] MEDS ORDERED: KETOROLAC 15 MG/ML VIAL ONE (13:47)
[2019-04-27] MEDS ORDERED: ACETAMINOPHEN 1,000 MG/100 ML 100 ML IV ONE (13:52)
[2019-04-27 14:20] VITALS: BP 132/67
--- NOTE | 2019-04-27 17:46 | OPERATIVE REPORT ---
DATE OF SERVICE: 04/27/2019 Physician: Kelly Jean MD PREOPERATIVE DIAGNOSIS: Intracervical mass on ultrasound. POSTOPERATIVE DIAGNOSES: Intracervical mass on ultrasound and normal hysteroscopy. PROCEDURE PERFORMED: Hysteroscopy, dilation and curettage. SURGEON: Kelly Jean MD TILE INSPECTOR: None. ANESTHESIA: General. COUNTS: Correct x2. COMPLICATIONS: None apparent. DISPOSITION: Stable to the recovery room. PROPHYLAXIS: SCDs to bilateral lower extremities. SPECIMENS: Endometrial curettings to pathology. DESCRIPTION OF PROCEDURE: The patient went to the operating room for evaluation of an intracervical mass. She was premedicated with misoprostol. She was induced with anesthesia and placed in low lith otomy in [facility]. She had an axial uterus without adnexal masses. She was prepped and dr aped in the usual sterile fashion. Speculum was placed and a single-tooth tenaculum was applied to t he anterior lip of the cervix. A paracervical block was placed, 10 mL in divided doses. The cervix was easily dilated to 6 mm. The MyoSure hysteroscope was inserted into the uterine cavity and everyt rosalina appeared to be normal from the ostia down to the external cervical os. Another sweep was perfor med from fundus to external os to verify that no masses were seen and none were. A small curette was used to perform a traditional curettage, and the tissue was scant as expected in this postmenopausal patient. All instruments were removed from her body. She was washed and returned to the supine pos ition prior to waking. TD: 04/27/2019 13:32
== END 2019-04-27 10:23 | disposition home or self-care (01) ==
LOC: SDS 10:22
PROVIDERS: ATTEND Obstetrics & Gynecology
PROC: 0UDB8ZX Extraction of Endometrium, Via Natural or Artificial Opening Endoscopic, Diagnostic (ICD-10-PCS; principal; 2019-04-27 12:00)
DX: R93.89 Abnormal findings on diagnostic imaging of other specified body structures (principal); I10 Essential (primary) hypertension; K21.9 Gastro-esophageal reflux disease without esophagitis; Z78.0 Asymptomatic menopausal state; Z80.41 Family history of malignant neoplasm of ovary; Z79.899 Other long term (current) drug therapy
CPT/HCPCS: 58558; J0131; J7120

== ENCOUNTER 2019-08-06 10:10 | Outpatient (CLI) | payer MEDICARE ==
[2019-08-06 10:42] LABS: BASOPHILS % (AUTO) 1.1 %; EOSINOPHILS # (AUTO) 0.2 10^3/uL (0.0-0.7); EOSINOPHILS % (AUTO) 4.2 %; HGB - HEMOGLOBIN 12.6 g/dL (12.0-16.0); LYMPHOCYTES # (AUTO) 1.2 10^3/uL (1.5-3.5); LYMPHOCYTES % (AUTO) 34.6 %; MEAN CORPUSCULAR HEMOGLOBIN 32.2 pg (27.0-31.0); MEAN CORPUSCULAR HGB CONC 32.1 g/dL (32.0-36.0); MEAN CORPUSCULAR VOLUME 100.3 fL (81.0-99.0); MEAN PLATELET VOLUME 9.3 fL (7.9-10.8); MONOCYTES # (AUTO) 0.4 10^3/uL (0.0-1.0); MONOCYTES % (AUTO) 12.2 %; NEUTROPHILS # (AUTO) 1.7 10^3/uL (1.5-6.6); NEUTROPHILS % (AUTO) 47.6 %; PLT - PLATELET COUNT 207 10^3/uL (130-450); RED BLOOD COUNT 3.91 10^6/uL (4.20-5.40); RED CELL DISTRIBUTION WIDTH 12.8 % (12.0-15.0); WHITE BLOOD COUNT 3.5 x10^3/uL (4.8-10.8)
[2019-08-06 10:52] LABS: ALBUMIN 4.2 g/dL (3.2-5.5); ALBUMIN/GLOBULIN RATIO 1.6 (1.0-2.2); BILIRUBIN,TOTAL 0.5 mg/dL (0.2-1.0); CALCIUM 9.7 mg/dL (8.5-10.3); CREATININE 0.9 mg/dL (0.4-1.0); TOTAL PROTEIN 6.9 g/dL (6.7-8.2)
[2019-08-06 12:23] LABS: LITHIUM < 0.60 mmol/L
== END 2019-08-06 10:11 | disposition home or self-care (01) ==
LOC: LAB 10:10
PROVIDERS: ATTEND Psychiatry & Neurology Psychiatry
DX: F33.9 Major depressive disorder, recurrent, unspecified (principal); F43.10 Post-traumatic stress disorder, unspecified; F90.9 Attention-deficit hyperactivity disorder, unspecified type
CPT/HCPCS: 36415; 80053; 80178; 84443; 85025

== ENCOUNTER 2019-11-10 00:02 | Emergency (ER) | payer MEDICARE ==
--- NOTE | 2019-11-10 00:10 | ED Physician Documentation ---
History of Present Illness - Stated complaint Stated Complaint: EYE PX - History obtained from History obtained from: Patient - Additonal information Additional information: 64-year-old female with a chief complaint of foreign body sensation to the left eye patient reports she was getting dressed to go to bed tonight when she was putting on her nightgown and felt something drop into her eye she describes discomfort and mild pain denies any visual loss.Denies any history of PRK or LASIK surgery. Review of Systems Constitutional: reports: Reviewed and negative Eyes: reports: Irritation Ears: reports: Reviewed and negative Nose: reports: Reviewed and negative Throat: reports: Reviewed and negative Cardiac: reports: Reviewed and negative Respiratory: reports: Reviewed and negative GI: reports: Reviewed and negative : reports: Reviewed and negative Skin: reports: Reviewed and negative Musculoskeletal: reports: Reviewed and negative Neurologic: reports: Reviewed and negative Psychiatric: reports: Reviewed and negative Endocrine: reports: Reviewed and negative Immunocompromised: reports: Reviewed and negative PD PAST MEDICAL HISTORY - Past Medical History Cardiovascular: Hypertension, Murmur Respiratory: None Endocrine/Autoimmune: HyPOthyroidism GI: GERD, Ulcerative colitis 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 CLAIMS 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 : None HEENT: Chronic vision loss Psych: Depression, Anxiety, Post traumatic stress disorder Musculoskeletal: Osteoarthritis Derm: Other - Past Surgical History Past Surgical History: Yes General: Appendectomy Ortho: Carpal Tunnel surgery, Other /LIABILITY CLAIMS MANAGER: section - Present Medications Home Medications: Ambulatory Orders Medication Instructions Recorded Confirmed [place] Carbonate 1 tab PO QPM 05/28/15 04/25/19 traZODone [Desyrel] 50 mg PO QPM 05/28/15 04/25/19 Bupropion HCl [Bupropion Xl] 150 mg PO DAILY 04/25/19 04/25/19 Calcium Carbonate/Vitamin D3 1 each PO BID 04/25/19 04/25/19 [Calcium 500-Vit D3 200 Tablet] Methylphenidate HCl [Concerta] 36 mg PO DAILY 04/25/19 04/25/19 Thyroid Plus 130 mg PO DAILY 04/25/19 - Allergies Allergies/Adverse Reactions: Allergies Allergy/AdvReac Type Severity Reaction Status Date / Time hydrocodone [From Vicodin] Allergy Itching, Verified 04/25/19 10:50 rash meperidine [From Demerol] Allergy Itching, Verified 04/25/19 10:50 rash morphine Allergy Itching, Verified 04/25/19 10:50 rash - Social History Does the pt smoke?: No Smoking Status: Never smoker Does the pt drink ETOH?: Yes - POLST Patient has POLST: No PD ED PE NORMAL - Vitals Vital signs reviewed: Yes - General General: Alert and oriented X 3, No acute distress - HEENT HEENT: PERRL, EOMI, Other (left eye shows corneal FB 1x2 mm. ) - Neck Neck: Supple, no meningeal sign - Cardiac Cardiac: RRR, No murmur - Respiratory Respiratory: Clear bilaterally - Abdomen Abdomen: Normal bowel sounds, Soft, Non tender, Non distended - Derm Derm: Warm and dry - Extremities Extremities: No deformity - Neuro Neuro: Alert and oriented X 3 - Psych Psych: Normal mood, Normal affect Results - Vitals Vitals: Vital Signs - 24 hr 11/10/19 00:06 Temperature 36 C L Heart Rate 68 Respiratory 18 Rate Blood Pressure 143/81 H O2 Saturation 99 Oxygen O2 Source Room air Procedures - FB removal FB location: Other (LEFT EYE) FB removal preparation: Other (proparacaine drops) Removal method: Irrigated/flushed, Other (sterile cotton tipped applicator used to remove foreign body) FB removal aftercare: No complications, Patient tolerated well, Removed successfully PD MEDICAL DECISION MAKING - ED course Complexity details: considered differential (left eye foreign body, removed successfully.) ED course: Patient with foreign body to the left eye removed in the emergency department patient given specific instructions to follow-up with either an petroleum supply specialist or colorman today. Patient agrees to this plan patient also provided antibiotic drops with Polytrim. Departure - Departure Disposition: 01 Home, Self Care Clinical Impression: Eye foreign body Qualifiers: Encounter type: initial encounter Laterality: left Qualified Code(s): T15.92XA - Foreign body on external eye, part unspecified, left eye, initial encounter Condition: Stable Instructions: ED Foreign Body Cornea Follow-Up: FELIX BURGER PA [Primary Care Provider] - Ar Goode MD [Provider Admit Priv/Credential] - 11/10/19 Comments: apply polytrim drops 2-3 times daily. follow up with an eye doctor today either an petroleum supply specialist or colorman.
[2019-11-10] MEDS ORDERED: PROPARACAINE 0.5% OPHTH DROPS 15 ML LEFTEYE STA (00:20)
[2019-11-10] MEDS ORDERED: POLYMYXIN B/TRIMETH OPHTH DROPS LEFTEYE STA (00:51)
[2019-11-10 01:14] VITALS: BP 116/74
== END 2019-11-10 00:42 | disposition home or self-care (01) ==
LOC: ED 00:02
DX: T15.02XA Foreign body in cornea, left eye, initial encounter (principal); X58.XXXA Exposure to other specified factors, initial encounter; Y93.E8 Activity, other personal hygiene
CPT/HCPCS: 65205; 99282; 99284; A9270; J3490

== ENCOUNTER 2019-12-27 12:01 | Outpatient (CLI) | payer MEDICARE ==
[2019-12-27 12:34] LABS: CREATININE 0.8 mg/dL (0.4-1.0)
[2019-12-27 13:05] LABS: LITHIUM 0.28 mmol/L
== END 2019-12-27 12:02 | disposition home or self-care (01) ==
LOC: LAB 12:01
PROVIDERS: ATTEND Psychiatry & Neurology Psychiatry
DX: F33.9 Major depressive disorder, recurrent, unspecified (principal); F43.10 Post-traumatic stress disorder, unspecified; F90.9 Attention-deficit hyperactivity disorder, unspecified type; G47.00 Insomnia, unspecified
CPT/HCPCS: 36415; 80178; 82565

== ENCOUNTER 2020-03-27 12:49 | Outpatient (CLI) | payer MEDICARE ==
--- NOTE | 2020-04-05 09:33 | Mammography Report ---
BILATERAL DIGITAL SCREENING MAMMOGRAM 3D/2D: 03/27/2020 CLINICAL: Routine screening. Comparison is made to exams dated: 01/07/2019 mammogram, 09/08/2017 mammogram, 08/22/2016 mammogram, an d 02/05/2015 mammogram - [facility]. The tissue of both breasts is heterogeneously dense. This may lower the sensitivity of mammography. No significant masses, calcifications, or other findings are seen in either breast. There has been no significant interval change. IMPRESSION: NEGATIVE There is no mammographic evidence of malignancy. A 1 year screening mammogram is recommended. This exam was interpreted at Station ID: [id number]. NOTE: For mammograms, a report in lay terms will be sent to the patient. Approximately 15% of breast malignancies will not be visualized mammographically. In the management of a palpable breast mass, a negative mammogram must not discourage biopsy of a clinically suspicious lesion. Electronically Signed By: Miguel Dale M.D. aty/penrad:04/04/2020 17:30:14 ACR BI-RADS Category 1: Negative [id number] PARENCHYMAL PATTERN: (D) - The breast(s) demonstrate(s) heterogeneously dense fibroglandular carrie vega. BI-RADS CATEGORY: (1) - 1 RECOMMENDATION: (ANNUAL) - Recommend routine annual screening mammography. [id number] 1 year screening LATERALITY: (B)
== END 2020-03-27 12:50 | disposition home or self-care (01) ==
LOC: DI.S 12:49
PROVIDERS: ATTEND Physician Assistant
DX: Z12.31 Encounter for screening mammogram for malignant neoplasm of breast (principal)

== ENCOUNTER 2020-04-18 08:00 | Outpatient (CLI) | payer MEDICARE ==
[2020-04-18 12:02] LABS: LITHIUM 0.41 mmol/L
== END 2020-04-18 23:59 | disposition home or self-care (01) ==
LOC: LAB 08:00
PROVIDERS: ATTEND Psychiatry & Neurology Psychiatry
DX: F33.9 Major depressive disorder, recurrent, unspecified (principal); F43.10 Post-traumatic stress disorder, unspecified; F90.9 Attention-deficit hyperactivity disorder, unspecified type; G47.00 Insomnia, unspecified
CPT/HCPCS: 36415; 80178; 82565

== ENCOUNTER 2020-05-05 09:12 | Outpatient (CLI) | payer MEDICARE ==
[2020-05-05 14:57] LABS: MEAN CORPUSCULAR HEMOGLOBIN 31.5 pg (27.0-31.0); MEAN CORPUSCULAR HGB CONC 31.9 g/dL (32.0-36.0); MEAN CORPUSCULAR VOLUME 98.7 fL (81.0-99.0); MEAN PLATELET VOLUME 9.9 fL (7.9-10.8); RED BLOOD COUNT 3.81 10^6/uL (4.20-5.40); RED CELL DISTRIBUTION WIDTH 12.6 % (12.0-15.0); WHITE BLOOD COUNT 4.4 x10^3/uL (4.8-10.8)
[2020-05-05 15:22] LABS: ALBUMIN 4.5 g/dL (3.2-5.5); ALBUMIN/GLOBULIN RATIO 1.8 (1.0-2.2); ALKALINE PHOSPHATASE 61 IU/L (42-121); ALT ALANINE AMINOTRANSFERASE 20 IU/L (10-60); AST ASPARTATE AMINOTRANSFERASE 21 IU/L (10-42); BILIRUBIN,TOTAL 0.4 mg/dL (0.2-1.0); BUN - BLOOD UREA NITROGEN 21 mg/dL (6-20); CALCIUM 9.5 mg/dL (8.5-10.3); CARBON DIOXIDE - CO2 29 mmol/L (21-32); CHLORIDE 99 mmol/L (101-111); CHOL/HDL RATIO 2.8 (<4.4); CHOLESTEROL 195 mg/dL; CREATININE 0.9 mg/dL (0.4-1.0); GLUCOSE 95 mg/dL (70-100); HDL CHOLESTEROL 70 mg/dL; LDL CHOLESTEROL,CALCULATED 105 mg/dL; LDL/HDL RATIO 1.5 (<4.4); VLDL CHOLESTEROL 20 mg/dL
== END 2020-05-05 09:13 | disposition home or self-care (01) ==
LOC: LAB.S 09:12
PROVIDERS: ATTEND Obstetrics & Gynecology
DX: Z00.00 Encounter for general adult medical examination without abnormal findings (principal); Z13.220 Encounter for screening for lipoid disorders; E03.9 Hypothyroidism, unspecified; Z79.899 Other long term (current) drug therapy
CPT/HCPCS: 36415; 80053; 80061; 83721; 84443; 85027

== ENCOUNTER 2020-07-29 01:20 | Emergency (ER) | payer MEDICARE ==
[2020-07-29 01:50] LABS: BASOPHILS # (AUTO) 0.1 10^3/uL (0.0-0.1); BASOPHILS % (AUTO) 1.2 %; EOSINOPHILS # (AUTO) 0.1 10^3/uL (0.0-0.7); EOSINOPHILS % (AUTO) 1.8 %; HGB - HEMOGLOBIN 12.4 g/dL (12.0-16.0); LYMPHOCYTES # (AUTO) 2.4 10^3/uL (1.5-3.5); LYMPHOCYTES % (AUTO) 48.6 %; MEAN CORPUSCULAR HEMOGLOBIN 31.2 pg (27.0-31.0); MEAN CORPUSCULAR HGB CONC 32.6 g/dL (32.0-36.0); MEAN CORPUSCULAR VOLUME 95.5 fL (81.0-99.0); MONOCYTES # (AUTO) 0.7 10^3/uL (0.0-1.0); MONOCYTES % (AUTO) 14.7 %; NEUTROPHILS # (AUTO) 1.6 10^3/uL (1.5-6.6); NEUTROPHILS % (AUTO) 33.5 %; PLT - PLATELET COUNT 179 10^3/uL (130-450); RED BLOOD COUNT 3.98 10^6/uL (4.20-5.40); RED CELL DISTRIBUTION WIDTH 12.1 % (12.0-15.0); WHITE BLOOD COUNT 4.9 x10^3/uL (4.8-10.8)
[2020-07-29 02:03] LABS: ALBUMIN 4.2 g/dL (3.2-5.5); ALBUMIN/GLOBULIN RATIO 1.5 (1.0-2.2); BILIRUBIN,TOTAL 0.5 mg/dL (0.2-1.0); CALCIUM 9.2 mg/dL (8.5-10.3); CREATININE 0.9 mg/dL (0.4-1.0); POTASSIUM 3.2 mmol/L (3.5-5.0)
[2020-07-29] MEDS ORDERED: SODIUM CHLORIDE 0.9% 1,000 ML IV STA (02:03)
[2020-07-29] MEDS ORDERED: POTASSIUM CHLORIDE 20 MEQ TABLET PO STA (03:23)
[2020-07-29 03:36] LABS: BILIRUBIN,URINE NEGATIVE (NEGATIVE); GLUCOSE, URINE (UA) NEGATIVE (NEGATIVE); KETONES,URINE (UA) NEGATIVE (NEGATIVE); LEUKOCYTE ESTERASE, URINE NEGATIVE (NEGATIVE); NITRITE,URINE NEGATIVE (NEGATIVE); OCCULT BLOOD,URINE TRACE-LYSE (NEGATIVE); PROTEIN,URINE NEGATIVE (NEGATIVE); UROBILINOGEN,URINE 0.2 (NORMAL) E.U./dL (NORMAL)
[2020-07-29 03:40] LABS: CLARITY,URINE CLEAR (CLEAR)
[2020-07-29 03:48] LABS: B. PARAPERTUSSIS- RESP PCR PAN NOT DETECTED; B. PERTUSSIS- RESP PCR PANEL NOT DETECTED; C. PNEUMONIAE- RESP PCR PANEL NOT DETECTED; CORONAVIRUS 229E-RESP PCR NOT DETECTED; CORONAVIRUS HKU1-RESP PCR NOT DETECTED; CORONAVIRUS NL63-RESP PCR NOT DETECTED; CORONAVIRUS OC43-RESP PCR NOT DETECTED; HUMAN METAPNEUMOVIRUS NOT DETECTED; INFLUENZA A- RESP PCR PANEL NOT DETECTED; INFLUENZA B - RESP PCR PANEL NOT DETECTED; M. PNEUMONIAE- RESP PCR PANEL NOT DETECTED; PARAINFLUENZA VIRUS 1 NOT DETECTED; PARAINFLUENZA VIRUS 2 NOT DETECTED; PARAINFLUENZA VIRUS 3 NOT DETECTED; PARAINFLUENZA VIRUS 4 NOT DETECTED; RHINOVIRUS/ENTEROVIRUS NOT DETECTED; RSV- RESP PCR PANEL NOT DETECTED; SARS-CoV-2 -RESP PCR PANEL NOT DETECTED
--- NOTE | 2020-07-29 03:55 | ED Physician Documentation ---
History of Present Illness - Stated complaint Stated Complaint: CHEST PX, LOW BP - Chief complaint Chief Complaint: Cardiac - History obtained from History obtained from: Patient - History of Present Illness Timing: Last night Pain level max: 0 Pain level now: 0 Improved by: rest Worsened by: standing, ambulating - Additonal information Additional information: patient says that last night she was feeling generalized malaise and fatigue, "I just don't feel right" (per patient). She went to sleep shortly after 9:30 PM after measuring her blood pressure and she was concerned that it was high (154/84). She took and extra dose of tizanidine prior to going to sleep. 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 After waking up, she retook her blood pressure and had readings of 84/47, then 74/44. Review of Systems Constitutional: reports: Fatigue. denies: Fever, Chills, Sweats Eyes: denies: Loss of vision, Decreased vision Cardiac: reports: Chest pain / pressure. denies: Palpitations, Pedal edema, C senior living pain Respiratory: reports: Reviewed and negative GI: reports: Reviewed and negative : denies: Dysuria, Frequency Musculoskeletal: reports: Reviewed and negative Neurologic: reports: Generalized weakness, Headache. denies: Focal weakness, Numbness, Confused, Altered mental status Endocrine: denies: Polydypsia, Polyuria PD PAST MEDICAL HISTORY - Past Medical History Past Medical History: Yes Cardiovascular: Hypertension, Murmur Respiratory: None Endocrine/Autoimmune: HyPOthyroidism, Other GI: GERD, Ulcerative colitis TAPE TRANSFERRER: None : None HEENT: Chronic vision loss Psych: Depression, Anxiety, Post traumatic stress disorder Musculoskeletal: Osteoarthritis Derm: Other Other Past Medical History: diabetes insipidous - Past Surgical History Past Surgical History: Yes General: Appendectomy Ortho: Carpal Tunnel surgery, Other /TAPE TRANSFERRER: section - Present Medications Home Medications: Ambulatory Orders Medication Instructions Recorded Confirmed Methylphenidate HCl [Concerta] 36 mg PO DAILY 04/25/19 07/29/20 buPROPion HCL [Bupropion Xl] 150 mg PO DAILY 04/25/19 07/29/20 Gabapentin [Neurontin] 300 mg PO TID 07/29/20 07/29/20 Tizanidine HCl [Zanaflex] 8 mg PO DAILY 07/29/20 07/29/20 - Allergies Allergies/Adverse Reactions: Allergies Allergy/AdvReac Type Severity Reaction Status Date / Time hydrocodone [From Vicodin] Allergy Itching, Verified 07/29/20 01:52 rash meperidine [From Demerol] Allergy Itching, Verified 07/29/20 01:52 rash morphine Allergy Itching, Verified 07/29/20 01:52 rash - Social History Does the pt smoke?: No Smoking Status: Never smoker Does the pt drink ETOH?: Yes Does the pt have substance abuse?: No - Immunizations Immunizations are current?: Yes - POLST Patient has POLST: No PD ED PE NORMAL - Vitals Vital signs reviewed: Yes - General General: Alert and oriented X 3, No acute distress, Well developed/nourished - HEENT HEENT: PERRL, EOMI, Moist mucous membranes - Neck Neck: Supple, no meningeal sign - Cardiac Cardiac: RRR, No murmur, No gallop, No rub - Respiratory Respiratory: No respiratory distress, Clear bilaterally - Abdomen Abdomen: Soft, Non tender - Back Back: No CVA TTP - Derm Derm: Normal color, Warm and dry - Extremities Extremities: No edema - Neuro Neuro: Alert and oriented X 3, bicycle fitter 2-12 intact, No motor deficit, No sensory deficit, Normal speech Eye Opening: Spontaneous Motor: Obeys Commands Verbal: Oriented GCS Score: 15 Results - Vitals Vitals: Vital Signs - 24 hr 07/29/20 07/29/20 07/29/20 01:30 01:35 02:15 Temperature 36.4 C L 36.4 C L Heart Rate 65 56 L 54 L Respiratory 15 11 L 10 L Rate Blood Pressure 155/76 H 155/76 H 166/86 H O2 Saturation 100 100 100 07/29/20 07/29/20 07/29/20 02:31 03:36 05:00 Temperature 36.2 C L 36.2 C L 36.3 C L Heart Rate 53 L 59 L 58 L Respiratory 16 16 12 Rate Blood Pressure 146/72 H 122/94 H 142/81 H O2 Saturation 100 100 99 07/29/20 05:26 Temperature 36.6 C Heart Rate 62 Respiratory 14 Rate Blood Pressure 141/82 H O2 Saturation 99 Oxygen O2 Source Room air - EKG (time done) No standard instances Rate: Rate (enter#) (62) Rhythm: NSR [place]: Normal Intervals: Normal CT QRS: Normal Ischemia: Normal ST segments - Labs Labs: Laboratory Tests 07/29/20 07/29/20 07/29/20 01:24 01:39 01:39 WBC 4.9 RBC 3.98 L Hgb 12.4 Hct 38.0 MCV 95.5 MCH 31.2 H MCHC 32.6 RDW 12.1 Plt Count 179 MPV 10.0 Neut # (Auto) 1.6 Lymph # (Auto) 2.4 [place] # (Auto) 0.7 Eos # (Auto) 0.1 Baso # (Auto) 0.1 Absolute Nucleated RBC 0.00 Nucleated RBC % 0.0 Sodium 140 Potassium 3.2 L Chloride 103 Carbon Dioxide 28 Anion Gap 9.0 BUN 16 Creatinine 0.9 Estimated GFR (MDRD) 63 L Glucose 86 POC Whole Bld Glucose Calcium 9.2 Total Bilirubin 0.5 AST 20 ALT 21 Alkaline Phosphatase 54 Troponin I High Sens Total Protein 7.0 Albumin 4.2 Globulin 2.8 Albumin/Globulin Ratio 1.5 Lipase 24 TSH 3.02 Urine Color Urine Clarity Urine pH Ur Specific [place] Urine Protein Urine Glucose (UA) Urine Ketones Urine Occult Blood Urine Nitrite Urine Bilirubin Urine Urobilinogen Ur Leukocyte Esterase Ur Microscopic Review Urine Culture Comments Nasal Adenovirus (PCR) Nasal B. parapertussis DNA (PCR) Nasal Coronavir 229E PCR Nasal Coronavir HKU1 PCR Nasal Coronavir NL63 PCR Nasal Coronavir OC43 PCR Nasal Enterovir/Rhinovir PCR Nasal Influenza B PCR Nasal Influenza A PCR Nasal Parainfluen 1 PCR Nasal Parainfluen 2 PCR Nasal Parainfluen 3 PCR Nasal Parainfluen 4 PCR Nasal RSV (PCR) Nasal B.pertussis DNA PCR Nasal C.pneumoniae (PCR) David Human Metapneumo PCR Nasal M.pneumoniae (PCR) Nasal SARS-CoV-2 (PCR) 07/29/20 07/29/20 07/29/20 01:39 01:43 02:50 WBC RBC Hgb Hct MCV MCH MCHC RDW Plt Count MPV Neut # (Auto) Lymph # (Auto) [place] # (Auto) Eos # (Auto) Baso # (Auto) Absolute Nucleated RBC Nucleated RBC % Sodium Potassium Chloride Carbon Dioxide Anion Gap BUN Creatinine Estimated GFR (MDRD) Glucose POC Whole Bld Glucose 86 Calcium Total Bilirubin AST ALT Alkaline Phosphatase Troponin I High Sens 3.0 Total Protein Albumin Globulin Albumin/Globulin Ratio Lipase TSH Urine Color Urine Clarity Urine pH Ur Specific [place] Urine Protein Urine Glucose (UA) Urine Ketones Urine Occult Blood Urine Nitrite Urine Bilirubin Urine Urobilinogen Ur Leukocyte Esterase Ur Microscopic Review Urine Culture Comments Nasal Adenovirus (PCR) NOT DETECTED Nasal B. parapertussis DNA (PCR) NOT DETECTED Nasal Coronavir 229E PCR NOT DETECTED Nasal Coronavir HKU1 PCR NOT DETECTED Nasal Coronavir NL63 PCR NOT DETECTED Nasal Coronavir OC43 PCR NOT DETECTED Nasal Enterovir/Rhinovir PCR NOT DETECTED Nasal Influenza B PCR NOT DETECTED Nasal Influenza A PCR NOT DETECTED Nasal Parainfluen 1 PCR NOT DETECTED Nasal Parainfluen 2 PCR NOT DETECTED Nasal Parainfluen 3 PCR NOT DETECTED Nasal Parainfluen 4 PCR NOT DETECTED Nasal RSV (PCR) NOT DETECTED Nasal B.pertussis DNA PCR NOT DETECTED Nasal C.pneumoniae (PCR) NOT DETECTED David Human Metapneumo PCR NOT DETECTED Nasal M.pneumoniae (PCR) NOT DETECTED Nasal SARS-CoV-2 (PCR) NOT DETECTED 07/29/20 03:29 WBC RBC Hgb Hct MCV MCH MCHC RDW Plt Count MPV Neut # (Auto) Lymph # (Auto) [place] # (Auto) Eos # (Auto) Baso # (Auto) Absolute Nucleated RBC Nucleated RBC % Sodium Potassium Chloride Carbon Dioxide Anion Gap BUN Creatinine Estimated GFR (MDRD) Glucose POC Whole Bld Glucose Calcium Total Bilirubin AST ALT Alkaline Phosphatase Troponin I High Sens Total Protein Albumin Globulin Albumin/Globulin Ratio Lipase TSH Urine Color YELLOW Urine Clarity CLEAR Urine pH 7.0 Ur Specific [place] 1.015 Urine Protein NEGATIVE Urine Glucose (UA) NEGATIVE Urine Ketones NEGATIVE Urine Occult Blood TRACE-LYSE Urine Nitrite NEGATIVE Urine Bilirubin NEGATIVE Urine Urobilinogen 0.2 (NORMAL) Ur Leukocyte Esterase NEGATIVE Ur Microscopic Review NOT INDICATED Urine Culture Comments NOT INDICATED Nasal Adenovirus (PCR) Nasal B. parapertussis DNA (PCR) Nasal Coronavir 229E PCR Nasal Coronavir HKU1 PCR Nasal Coronavir NL63 PCR Nasal Coronavir OC43 PCR Nasal Enterovir/Rhinovir PCR Nasal Influenza B PCR Nasal Influenza A PCR Nasal Parainfluen 1 PCR Nasal Parainfluen 2 PCR Nasal Parainfluen 3 PCR Nasal Parainfluen 4 PCR Nasal RSV (PCR) Nasal B.pertussis DNA PCR Nasal C.pneumoniae (PCR) David Human Metapneumo PCR Nasal M.pneumoniae (PCR) Nasal SARS-CoV-2 (PCR) - Rads (name of study) CT head Radiology: Prelim report reviewed, See rad report PD MEDICAL DECISION MAKING - ED course Complexity details: reviewed results, re-evaluated patient, considered differential, d/w patient ED course: presents with generalized malaise and weakness (generalized), 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 She has vague chest pain which she describes as more predominant sensation of left facial discomfort/left-sided RICE with pain radiating down to left chest. Normal EKG with normal high sensitivity troponin. Mild hypokalemia with otherwise unremarkable test results including CTH, UA, CXR, covid PCR. On reevaluation, these results were d/w patient and after 1 liter NS IV, she reports feeling better and is comfortable with d/c home. Departure - Departure Disposition: 01 Home, Self Care Clinical Impression: Fatigue Qualifiers: Fatigue type: unspecified Qualified Code(s): R53.83 - Other fatigue Chest pain Qualifiers: Chest pain type: unspecified Qualified Code(s): R07.9 - Chest pain, unspecified Condition: Good Instructions: ED Chest Pain Atypical Unkn Cause Follow-Up: BILLY TYLER ARNP [Primary Care Provider] - Within 1 week Discharge Date/Time: 07/29/20 05:26
[2020-07-29 05:27] VITALS: BP 141/82
--- NOTE | 2020-07-29 07:11 | XRAY Report ---
PROCEDURE: Chest 2 View X-Ray INDICATIONS: fatigue, chest pain TECHNIQUE: 2 view(s) of the chest. COMPARISON: 05/28/1959 FINDINGS: Surgical changes and devices: None. Lungs and pleura: The lungs are slightly hyperinflated with mild flattening of the hemidiaphragms sim ilar to comparison exam. Similar scarring of the lung apices. No focal consolidation, pneumothorax, o r pleural effusion. Mediastinum: Mediastinal contours are normal. Heart size is normal. Bones and chest wall: No suspicious bony abnormalities. Soft tissues appear unremarkable. IMPRESSION: Mild hyperinflation which may be seen in the setting of COPD/emphysema, otherwise no evidence of acut e pulmonary abnormality. Reviewed by: Pietro Brady DO on 07/29/2020 6:09 AM SHAMIR Approved by: Pietro Brady DO on 07/29/2020 6:09 AM SHAMIR Station ID: [id number]
--- NOTE | 2020-07-29 07:13 | CT Report ---
PROCEDURE: HEAD WO INDICATIONS: headache TECHNIQUE: Noncontrast 4.5 mm thick angled axial sections acquired from the foramen magnum to the vertex. For r adiation dose reduction, the following was used: automated exposure control, adjustment of mA and/or kV according to patient size. COMPARISON: None. FINDINGS: Image quality: Excellent. CSF spaces: Basal cisterns are patent. No extra-axial fluid collections. Ventricles and extra-axial CSF spaces are appropriate for patient's age. Brain: No midline shift. No intracranial masses or hemorrhage. Cerda-white matter interface is norm al. There are mild calcifications within the proximal intracranial carotid arteries. Skull and face: Calvarium and visualized facial bones are intact, without suspicious lesions. Sinuses: Visualized sinuses and mastoids are clear. IMPRESSION: No evidence of an acute intracranial abnormality. Agree with preliminary report. Reviewed by: Pietro Brady DO on 07/29/2020 6:12 AM SHAMIR Approved by: Pietro Brady DO on 07/29/2020 6:12 AM SHAMIR Station ID: [id number]
== END 2020-07-29 05:26 | disposition home or self-care (01) ==
LOC: ED 01:20
DX: R07.9 Chest pain, unspecified (principal); R53.83 Other fatigue; R51.9 Headache, unspecified; E87.6 Hypokalemia; I10 Essential (primary) hypertension; Z20.822 Contact with and (suspected) exposure to COVID-19
CPT/HCPCS: 36415; 70450; 71046; 80053; 81003; 83690; 84443; 84484; 85025; 87631; 93005; 99284; A9270; 0202U; 81001; 87086

== ENCOUNTER 2020-09-10 10:56 | Outpatient (CLI) | payer MEDICARE ==
[2020-09-10 11:30] LABS: BILIRUBIN,URINE NEGATIVE (NEGATIVE); GLUCOSE, URINE (UA) NEGATIVE (NEGATIVE); KETONES,URINE (UA) NEGATIVE (NEGATIVE); LEUKOCYTE ESTERASE, URINE NEGATIVE (NEGATIVE); NITRITE,URINE NEGATIVE (NEGATIVE); OCCULT BLOOD,URINE TRACE-INTA (NEGATIVE); PROTEIN,URINE NEGATIVE (NEGATIVE); UROBILINOGEN,URINE 0.2 (NORMAL) E.U./dL (NORMAL)
[2020-09-10 11:35] LABS: BACTERIA,URINE Rare /HPF (None Seen); CLARITY,URINE CLEAR (CLEAR); RBC,URINE 0-5 /HPF (0-5); SQUAMOUS EPITHELIAL CELL,UR RARE Squamous (<= Few); WBC,URINE 0-3 /HPF (0-5)
[2020-09-10 11:46] LABS: ALBUMIN 4.4 g/dL (3.2-5.5); ALBUMIN/GLOBULIN RATIO 1.4 (1.0-2.2); BILIRUBIN,TOTAL 0.4 mg/dL (0.2-1.0); CALCIUM 9.7 mg/dL (8.5-10.3); POTASSIUM 4.6 mmol/L (3.5-5.0); TOTAL PROTEIN 7.5 g/dL (6.7-8.2)
== END 2020-09-10 10:57 | disposition home or self-care (01) ==
LOC: LAB 10:56
PROVIDERS: ATTEND Nurse Practitioner Family
DX: R39.11 Hesitancy of micturition (principal)
CPT/HCPCS: 36415; 80053; 81001; 81003; 87086

== ENCOUNTER 2020-11-19 08:26 | Emergency (ER) | payer MEDICARE ==
--- NOTE | 2020-11-19 08:44 | ED Physician Documentation ---
PD HPI GI BLEED - Stated complaint Stated Complaint: BLOOD IN STOOL/STOMACH PX - Chief complaint Chief Complaint: Abd Pain - History obtained from History obtained from: Patient - History of Present Illness Timing - onset: Today, Last night Timing - duration: Hours Timing - details: Abrupt onset, Still present Associated symptoms: BRBPR, Abdominal pain (cramping lower abd). No: Vomiting, Hematemesis, Black/tarry stool, Constipation Contributing factors: Bad food (possibly bad food/intolerance - she says family had [employer] food yesterday and her had some cramps/loose stool overnight. No noted blood. Feeling okay today though. Patient had cramping and loose stool, but noted it to have red blood, and then subsequent few bowel movements of just blood.). No: Sick contact, Travel, Recent antibiotics Improved by: BM (less cramping after the BMs. Not consistent pain.) Similar symptoms before: Has not had sx before Recently seen: Not recently seen Review of Systems Constitutional: denies: Fever, Chills Nose: denies: Rhinorrhea / runny nose, Congestion Throat: denies: Sore throat Respiratory: denies: Cough GI: reports: Abdominal Pain, Nausea, Bloody / black stool. denies: Abdominal Swelling, Vomiting, Constipation : denies: Dysuria, Frequency Neurologic: reports: Generalized weakness. 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 : None HEENT: Chronic vision loss Psych: Depression, Anxiety, Post traumatic stress disorder Musculoskeletal: Osteoarthritis Derm: Other - Past Surgical History Past Surgical History: Yes General: Appendectomy Ortho: Carpal Tunnel surgery, Other /WHEEL ADJUSTER: section - Present Medications Home Medications: Ambulatory Orders Medication Instructions Recorded Confirmed Methylphenidate HCl [Concerta] 27 mg PO DAILY 04/25/19 11/19/20 buPROPion HCL [Bupropion Xl] 150 mg PO DAILY 04/25/19 11/19/20 Tizanidine HCl [Zanaflex] 8 mg PO BID 07/29/20 11/19/20 FLUoxetine [PROzac] 10 mg PO DAILY 11/19/20 11/19/20 Naproxen 250 mg PO TID 7 Days #20 tablet 11/19/20 Quetiapine Fumarate [Seroquel] 75 mg PO HS 11/19/20 11/19/20 cephALEXin [Keflex] 500 mg PO TID 7 Days #10 cap 11/19/20 lisinopriL [Zestril] 5 mg PO DAILY 11/19/20 11/19/20 metroNIDAZOLE [Flagyl] 500 mg PO BID #10 tablet 11/19/20 - Allergies Allergies/Adverse Reactions: Allergies Allergy/AdvReac Type Severity Reaction Status Date / Time hydrocodone [From Vicodin] Allergy Itching, Verified 11/19/20 08:30 rash meperidine [From Demerol] Allergy Itching, Verified 11/19/20 08:30 rash morphine Allergy Itching, Verified 11/19/20 08:30 rash - Social History Does the pt smoke?: No Smoking Status: Never smoker Does the pt drink ETOH?: Yes Does the pt have substance abuse?: No - Immunizations Immunizations are current?: Yes - POLST Patient has POLST: No PD ED PE NORMAL - Vitals Vital signs reviewed: Yes - General General: Alert and oriented X 3, No acute distress, Well developed/nourished - Cardiac Cardiac: RRR, No murmur - Respiratory Respiratory: Clear bilaterally - Abdomen Abdomen: Normal bowel sounds, Soft, Non distended, No organomegaly, Other (some tenderness left lower abd and periumbilical without guarding, percusssion or rebound tenderness. no hernia. ) Results - Vitals Vitals: Vital Signs - 24 hr 11/19/20 11/19/20 11/19/20 08:30 10:24 11:36 Temperature 36.3 C L 36.2 C L Heart Rate 72 73 78 Respiratory 18 16 16 Rate Blood Pressure 124/69 124/73 124/76 O2 Saturation 100 100 100 Oxygen O2 Source Room air - Labs Labs: Laboratory Tests 11/19/20 11/19/20 11/19/20 08:45 08:45 11:19 WBC 7.9 RBC 4.04 L Hgb 12.8 Hct 39.2 MCV 97.0 MCH 31.7 H MCHC 32.7 RDW 13.5 Plt Count 208 MPV 9.0 Neut # (Auto) 6.4 Lymph # (Auto) 0.9 L [place] # (Auto) 0.4 Eos # (Auto) 0.0 Baso # (Auto) 0.1 Absolute Nucleated RBC 0.00 Nucleated RBC % 0.0 Sodium 136 Potassium 4.5 Chloride 100 L Carbon Dioxide 27 Anion Gap 9.0 BUN 25 H Creatinine 1.0 Estimated GFR (MDRD) 55 L Glucose 136 H Calcium 9.5 Total Bilirubin 0.7 AST 26 ALT 28 Alkaline Phosphatase 82 Total Protein 7.5 Albumin 4.5 Globulin 3.0 Albumin/Globulin Ratio 1.5 Lipase 23 Urine Color YELLOW Urine Clarity CLEAR Urine pH 6.5 Ur Specific [place] 1.010 Urine Protein NEGATIVE Urine Glucose (UA) NEGATIVE Urine Ketones NEGATIVE Urine Occult Blood TRACE-INTA Urine Nitrite NEGATIVE Urine Bilirubin NEGATIVE Urine Urobilinogen 0.2 (NORMAL) Ur Leukocyte Esterase NEGATIVE Ur Microscopic Review NOT INDICATED Urine Culture Comments NOT INDICATED - Rads (name of study) abd/pelvic CT Radiology: Prelim report reviewed (distal colitis from transverse colon down. No focal diverticulitis. ), See rad report PD MEDICAL DECISION MAKING - ED course Complexity details: reviewed results (distal colitis. Could be food poisoning with subsequent inflammation of colon, since with some diarrhea overnight too. However will want to treat as possible bacterial colitis/ or inflammatory. ), re-evaluated patient (she has not had further BRBPR while in the ER. After labs and CT, we did have patient try to have BM on commode but no output. Bleeding seems to have tapered/stopped. ), considered differential, d/w patient Departure - Departure Disposition: 01 Home, Self Care Clinical Impression: Acute hemorrhagic colitis, Acute lower GI bleeding Condition: Stable Record reviewed to determine appropriate education?: Yes Instructions: ED Hematochezia Stable Follow-Up: BILLY TYLER ARNP [Primary Care Provider] - Prescriptions: metroNIDAZOLE [Flagyl] 500 mg PO BID #10 tablet cephALEXin [Keflex] 500 mg PO TID 7 Days #10 cap Naproxen 250 mg PO TID 7 Days #20 tablet Comments: Stay well-hydrated. [place] food and easy to digest such as starches and rice for a day or 2. Use anti-inflammatory of naproxen 3 times a day for the next several days up to week. Add Tylenol if needed for pains. Metronidazole and cephalexin antibiotics as directed twice daily for the next 5 days for the presumed infection of the colon wall. You may notice some bleeding in the next day or 2. Return if significant amount of bleeding or associated fever, increased belly pain, repetitive vomiting, lightheadedness or other concerns. Otherwise follow-up with your primary care in the next several days, call tomorrow for a follow-up appointment. Your CT scan showed a localized area of inflammation of the colon (colitis). The initial factor may have been food related or some irritation with subsequent infection of the wall. If this improves and no further bleeding then that would be good. Discharge Date/Time: 11/19/20 12:02
[2020-11-19] MEDS ORDERED: KETOROLAC 15 MG/ML VIAL IVP STA (08:53)
[2020-11-19] MEDS ORDERED: ONDANSETRON 4 MG/2 ML VIAL IVP STA (08:53)
[2020-11-19] MEDS ORDERED: SODIUM CHLORIDE 0.9% 1,000 ML IV STA (08:53)
[2020-11-19 08:58] LABS: BASOPHILS # (AUTO) 0.1 10^3/uL (0.0-0.1); BASOPHILS % (AUTO) 0.6 %; EOSINOPHILS % (AUTO) 0.3 %; HCT - HEMATOCRIT 39.2 % (37.0-47.0); HGB - HEMOGLOBIN 12.8 g/dL (12.0-16.0); LYMPHOCYTES # (AUTO) 0.9 10^3/uL (1.5-3.5); LYMPHOCYTES % (AUTO) 11.7 %; MEAN CORPUSCULAR HEMOGLOBIN 31.7 pg (27.0-31.0); MEAN CORPUSCULAR HGB CONC 32.7 g/dL (32.0-36.0); MONOCYTES # (AUTO) 0.4 10^3/uL (0.0-1.0); MONOCYTES % (AUTO) 5.2 %; NEUTROPHILS # (AUTO) 6.4 10^3/uL (1.5-6.6); NEUTROPHILS % (AUTO) 82.1 %; PLT - PLATELET COUNT 208 10^3/uL (130-450); RED BLOOD COUNT 4.04 10^6/uL (4.20-5.40); RED CELL DISTRIBUTION WIDTH 13.5 % (12.0-15.0); WHITE BLOOD COUNT 7.9 x10^3/uL (4.8-10.8)
[2020-11-19 09:10] LABS: ALBUMIN 4.5 g/dL (3.2-5.5); ALBUMIN/GLOBULIN RATIO 1.5 (1.0-2.2); BILIRUBIN,TOTAL 0.7 mg/dL (0.2-1.0); CALCIUM 9.5 mg/dL (8.5-10.3); POTASSIUM 4.5 mmol/L (3.5-5.0); TOTAL PROTEIN 7.5 g/dL (6.7-8.2)
[2020-11-19] MEDS ORDERED: IOPAMIDOL-300 100 ML VIAL ONE (09:22)
[2020-11-19] MEDS ORDERED: diphenhydrAMINE INJ 50 MG/ML VIAL IVP STA (09:32)
[2020-11-19] MEDS ORDERED: IOPAMIDOL-300 100 ML VIAL IVP ONE (09:54)
--- NOTE | 2020-11-19 10:02 | CT Report ---
PROCEDURE: Abdomen/Pelvis W INDICATIONS: LLQ Abdominal pain, diverticulitis suspected CONTRAST: IV CONTRAST: Isovue 300 ml: 100 PO CONTRAST: *NO PO CONTRAST TECHNIQUE: After the administration of IV contrast, 5 mm thick sections acquired from the diaphragms to the symp hysis. 5 mm thick coronal and sagittal reformats were acquired. For radiation dose reduction, the f ollowing was used: automated exposure control, adjustment of mA and/or kV according to patient size. COMPARISON: 06/25/2015 FINDINGS: Image quality: Excellent. ABDOMEN: Lung bases: Lung bases are clear. Heart size is normal. A small hiatal hernia is incidentally note d. Solid organs: The liver is prominent and extends across the abdomen lateral to the spleen. No focal l iver lesions are seen. No significant splenic abnormality is seen. Gallbladder wall does not appear t hickened. Biliary system is non dilated. Pancreas enhances normally. No adrenal nodules. Kidney s demonstrate normal size and enhancement, without hydronephrosis. Peritoneum and bowel: In this patient with this given history, scrutiny is given to sigmoid colon an d the left lower quadrant of the abdomen. There is generalized wall thickening and inflammatory montejo e seen involving the distal colon beginning at the level of the distal transverse colon and extending through the rectum. Minimal surrounding inflammatory changes are seen. Bowel loops otherwise demonstrate normal wall thickness and caliber. No free fluid or air. No appen daniele can be seen, either normal or abnormal. No focal right lower quadrant inflammatory changes are se en. Nodes and vessels: No retroperitoneal or mesenteric adenopathy by size criteria. Aorta and inferior vena cava are normal in size. Miscellaneous: No ventral hernias. PELVIS: Genitourinary: Bladder wall thickness is normal. Miscellaneous: No inguinal hernias or adenopathy. Abnormally prominent, hyperenhancing veins can be seen within the pelvis, particularly on the left. There is early enhancement seen of the left gonada l vein. Bones: No suspicious bony lesions. No vertebral body compression fractures. Mild levoconvex scolio tic curvature is seen. Degenerative changes are seen throughout, which are worst at the L4-L5 level. IMPRESSION: Diffuse distal colitis, beginning at the level of the transverse colon. Please correlate with infectious and inflammatory causes. Ischemia is possible, yet considered to be a slightly. No findings of perforation or abscess can be seen. Negative for diverticulitis. Pelvic AV malformation, with abnormally prominent, hyperenhancing pelvic veins, with abnormal early e nhancement of the left gonadal vein. These findings are similar to 2016, yet more pronounced on the c urrent study. When clinically appropriate, an interventional radiology consultation is recommended. Incidental note is made of: Small hiatal hernia Prominent liver Levoconvex sclerotic curvature Focal L4-L5 degenerative change Reviewed by: Jaswinder Kent MD on 11/19/2020 9:01 AM SHAMIR Approved by: Jaswinder Kent MD on 11/19/2020 9:01 AM SHAMIR Station ID: [id number]
[2020-11-19] MEDS ORDERED: metroNIDAZOLE 250 MG TABLET PO STA (10:35)
[2020-11-19] MEDS ORDERED: cefTRIAXone 1 GM VIAL IVP STA (10:35)
[2020-11-19 11:34] LABS: BILIRUBIN,URINE NEGATIVE (NEGATIVE); GLUCOSE, URINE (UA) NEGATIVE (NEGATIVE); KETONES,URINE (UA) NEGATIVE (NEGATIVE); LEUKOCYTE ESTERASE, URINE NEGATIVE (NEGATIVE); NITRITE,URINE NEGATIVE (NEGATIVE); OCCULT BLOOD,URINE TRACE-INTA (NEGATIVE); PH,URINE 6.5 PH (5.0-7.5); PROTEIN,URINE NEGATIVE (NEGATIVE); UROBILINOGEN,URINE 0.2 (NORMAL) E.U./dL (NORMAL)
[2020-11-19 11:36] LABS: CLARITY,URINE CLEAR (CLEAR)
[2020-11-19 11:37] VITALS: BP 124/76
== END 2020-11-19 12:02 | disposition home or self-care (01) ==
LOC: ED 08:26
DX: K52.9 Noninfective gastroenteritis and colitis, unspecified (principal); K92.1 Melena; Z87.19 Personal history of other diseases of the digestive system; I10 Essential (primary) hypertension
CPT/HCPCS: 36415; 74177; 80053; 81003; 83690; 85025; 96374; 96375; 99283; 99285; A9270; J1200; Q9967; 81001; 87086

== ENCOUNTER 2021-03-29 09:51 | Outpatient (CLI) | payer MEDICARE ==
--- NOTE | 2021-04-01 08:59 | Mammography Report ---
BILATERAL DIGITAL DIAGNOSTIC MAMMOGRAM 3D/2D: 03/29/2021 CLINICAL: Occasional right breast pain. Comparison is made to exams dated: 03/27/2020 mammogram, 01/07/2019 mammogram, 09/08/2017 mammogram, mammogram, 02/05/2015 mammogram, and 01/31/2014 mammogram - [facility]. Th e tissue of both breasts is heterogeneously dense. This may lower the sensitivity of mammography. No significant masses, calcifications, or other findings are seen in either breast. Right breast rayo n is described as lower inner quadrant and has since resolved. IMPRESSION: NEGATIVE There is no mammographic evidence of malignancy. A 1 year screening mammogram is recommended. Exam findings were conveyed to the patient. Patient is advised to monitor for significant change. Cli nical follow-up as needed. This exam was interpreted at Station ID: [id number]. NOTE: For mammograms, a report in lay terms will be sent to the patient. Approximately 15% of breast malignancies will not be visualized mammographically. In the management of a palpable breast mass, a negative mammogram must not discourage biopsy of a clinically suspicious lesion. Electronically Signed By: Santiago Velez M.D. slc/:03/29/2021 10:56:02 ACR BI-RADS Category 1: Negative 3341F PARENCHYMAL PATTERN: (D) - The breast(s) demonstrate(s) heterogeneously dense fibroglandular carrie vega. BI-RADS CATEGORY: (1) - 1 RECOMMENDATION: (ANNUAL) - Recommend routine annual screening mammography. [id number] 1 year screening LATERALITY: (B)
== END 2021-03-29 09:52 | disposition home or self-care (01) ==
LOC: DI 09:51
PROVIDERS: ATTEND Nurse Practitioner Family
DX: N64.4 Mastodynia (principal)

== ENCOUNTER 2021-07-15 08:00 | Outpatient (CLI) | payer MEDICARE | END 2021-07-15 23:59 | disposition home or self-care (01) | LOC: LAB 08:00 | PROVIDERS: ATTEND Physician Assistant Medical | DX: L03.115 Cellulitis of right lower limb (principal) | CPT/HCPCS: 87070; 87077; 87181; 87205 ==

== ENCOUNTER 2021-07-24 10:12 | Outpatient (CLI) | payer MEDICARE ==
[2021-07-24 14:46] LABS: CALCIUM 9.4 mg/dL (8.5-10.3); POTASSIUM 4.2 mmol/L (3.5-5.0)
[2021-07-24 15:00] LABS: HGB - HEMOGLOBIN 12.5 g/dL (12.0-16.0); MEAN CORPUSCULAR HEMOGLOBIN 31.3 pg (27.0-31.0); MEAN CORPUSCULAR HGB CONC 32.1 g/dL (32.0-36.0); MEAN CORPUSCULAR VOLUME 97.7 fL (81.0-99.0); MEAN PLATELET VOLUME 9.9 fL (7.9-10.8); RED BLOOD COUNT 3.99 10^6/uL (4.20-5.40); RED CELL DISTRIBUTION WIDTH 12.7 % (12.0-15.0); WHITE BLOOD COUNT 3.9 x10^3/uL (4.8-10.8)
[2021-07-24 15:01] LABS: TOTAL PROTEIN,URINE TIMED < 6 mg/dL
== END 2021-07-24 10:13 | disposition home or self-care (01) ==
LOC: LAB.S 10:12
PROVIDERS: ATTEND Internal Medicine Nephrology
DX: N05.9 Unspecified nephritic syndrome with unspecified morphologic changes (principal); D70.9 Neutropenia, unspecified; D63.1 Anemia in chronic kidney disease; R80.9 Proteinuria, unspecified
CPT/HCPCS: 36415; 80048; 82570; 84156; 85027

== ENCOUNTER 2021-09-15 08:00 | Outpatient (CLI) | payer MEDICARE ==
--- NOTE | 2021-09-15 15:26 | XRAY Report ---
PROCEDURE: Foot 3 View RT INDICATIONS: FOOT PAIN, RIGHT TECHNIQUE: 3 views of the foot were acquired. COMPARISON: None FINDINGS: Bones: No fractures or dislocations. Postoperative changes of fusion of the first metatarsophalange al joint. No suspicious bony lesions. Soft tissues: No tibiotalar joint effusion. Achilles tendon appears normal. IMPRESSION: 1. Postoperative changes of the great toe with fusion of the metatarsophalangeal joint with no compli cation. 2. No acute abnormality. Reviewed by: Horace Canas on 09/15/2021 2:25 PM SHAMIR Approved by: Horace Canas on 09/15/2021 2:25 PM SHAMIR Station ID: [id number]
== END 2021-09-15 23:59 | disposition home or self-care (01) ==
LOC: DI.S 08:00
PROVIDERS: ATTEND Physician Assistant
DX: M79.671 Pain in right foot (principal); L08.9 Local infection of the skin and subcutaneous tissue, unspecified

== ENCOUNTER 2022-01-21 11:35 | Outpatient (CLI) | payer MEDICARE ==
--- NOTE | 2022-01-21 16:46 | XRAY Report ---
PROCEDURE: Lumbar Spine 2 View INDICATIONS: LOW BACK PAIN TECHNIQUE: 2 views of the lumbar spine were acquired. COMPARISON: None. FINDINGS: Bones: 5 [id number] vertebrae are present. There is normal bony alignment. No vertebral body compression fractures. No suspicious bony lesions. Convex left lumbar scoliosis present. Disc space narrowing and hypertrophic facet joints noted in the lower lumbar spine. Normal bone mineralization Soft tissues: Overlying bowel gas pattern is normal. No suspicious soft tissue calcifications. 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
== END 2022-01-21 11:36 | disposition home or self-care (01) ==
LOC: DI 11:35
PROVIDERS: ATTEND Physician Assistant
DX: M51.36 Other intervertebral disc degeneration, lumbar region (principal); M47.816 Spondylosis without myelopathy or radiculopathy, lumbar region; M41.9 Scoliosis, unspecified

== ENCOUNTER 2022-02-17 13:54 | Outpatient (CLI) | payer MEDICARE ==
--- NOTE | 2022-02-17 14:53 | XRAY Report ---
PROCEDURE: Chest 2 View X-Ray INDICATIONS: ACUTE COUGH TECHNIQUE: 2 views of the chest were acquired. COMPARISON: Chest x-ray 07/29/2020 FINDINGS: Surgical changes and devices: None. Lungs and pleura: No pleural effusions or pneumothorax. Lungs are clear. Mediastinum: Mediastinal contours are normal. Heart size is normal. Bones and chest wall: No suspicious bony abnormalities. Soft tissues appear unremarkable. IMPRESSION: No acute pulmonary process. Reviewed by: Marianna Vincent MD on 02/17/2022 2:52 PM [facility] Approved by: Marianna Vincent MD on 02/17/2022 2:52 PM [facility] Station ID: [id number]
== END 2022-02-17 13:55 | disposition home or self-care (01) ==
LOC: DI.S 13:54
PROVIDERS: ATTEND Registered Nurse
DX: R05.1 Acute cough (principal); R06.02 Shortness of breath

== ENCOUNTER 2022-04-14 13:16 | Outpatient (CLI) | payer MEDICARE ==
--- NOTE | 2022-04-15 11:41 | Mammography Report ---
BILATERAL DIGITAL SCREENING MAMMOGRAM 3D/2D: 04/14/2022 CLINICAL: Routine screening. Family history of breast cancer. Comparison is made to exams dated: 01/07/2019 mammogram, 09/08/2017 mammogram, 08/22/2016 mammogram, an d 02/05/2015 mammogram - [facility]. Both breasts are heterogeneously dense, which may obscure small masses (category c / 51-75% glandular tissue). There are benign calcifications in both breasts. No significant masses, calcifications, or other findings are seen in either breast. There has been no significant interval change. IMPRESSION: BENIGN There is no mammographic evidence of malignancy. A 1 year screening mammogram is recommended. Based on the Tyrer Cuzick model (a risk assessment model) the patients lifetime risk is 13.7% and he r 10 year risk is 7.7%. According to the ACR, ACS, and NCCN guidelines, an annual breast MRI exam junior ng with mammogram is recommended if the patients lifetime risk is 20% or greater. This exam was interpreted at Station ID: [id number]. NOTE: For mammograms, a report in lay terms will be sent to the patient. Approximately 15% of breast malignancies will not be visualized mammographically. In the management of a palpable breast mass, a negative mammogram must not discourage biopsy of a clinically suspicious lesion. Electronically Signed By: Horace Canas M.D. acr/penrad:04/14/2022 16:51:23 ACR BI-RADS Category 2: Benign Finding(s) 3342F PARENCHYMAL PATTERN: (D) - The breast(s) demonstrate(s) heterogeneously dense fibroglandular carrie vega. BI-RADS CATEGORY: (2) - 2 RECOMMENDATION: (ANNUAL) - Recommend routine annual screening mammography. [id number] 1 year screening LATERALITY: (B)
== END 2022-04-14 13:17 | disposition home or self-care (01) ==
LOC: DI 13:16
DX: Z12.31 Encounter for screening mammogram for malignant neoplasm of breast (principal); Z80.3 Family history of malignant neoplasm of breast

== ENCOUNTER 2022-07-14 14:07 | Outpatient (CLI) | payer MEDICARE ==
--- NOTE | 2022-07-14 15:15 | DEXA Report ---
PROCEDURE: Dexa Spine and/or Hip INDICATIONS: OSTEOPOROSIS TECHNIQUE: Dual energy x-ray absorptiometry (DXA) was performed on a Zoom[employer] System. Regions measur ed are the AP Spine, femoral neck, and if needed forearm. COMPARISON: DEXA 10/03/2019 FINDINGS: Lumbar Spine: Bone Mineral Density 0.83 g/cm/cm,T score -2.5, compared to -2.8 Left Femoral Neck: Bone Mineral Density 0.736 g/cm/cm, T score -2.2, compared to -2.0 Left Hip: Bone Mineral Density 0.750 g/cm/cm,T score -2.0, compared to -2.1 (T score greater or equal to -1.0: NORMAL) (T score from -1.1 to -2.4: OSTEOPENIA) (T score less than or equal to -2.5 to: OSTEOPOROSIS) Impression: Persistent although improved osteoporosis of the lumbar spine. Moderate to severe osteopenia in the femoral neck and hip slightly progressive and partially minimall y improved respectively. Patients with diagnosis of osteoporosis or osteopenia should have regular bone mineral density assess ment. For those eligible for Medicare, routine testing is allowed once every 2 years. Testing frequ ency can be increased for patients who have rapidly progressing disease or for those who are receivin g medical therapy to restore bone mass. Reviewed by: Marianna Vincent MD on 07/14/2022 3:14 PM PDT Approved by: Marianna Vincent MD on 07/14/2022 3:14 PM PDT Station ID: [id number]
== END 2022-07-14 14:08 | disposition home or self-care (01) ==
LOC: DI 14:07
PROVIDERS: ATTEND Nurse Practitioner Family
DX: M81.0 Age-related osteoporosis without current pathological fracture (principal)

== ENCOUNTER 2022-08-08 09:07 | Outpatient (CLI) | payer MEDICARE ==
--- NOTE | 2022-08-08 12:33 | XRAY Report ---
PROCEDURE: SI Joints INDICATIONS: SACROILLAC JOINT PAIN TECHNIQUE: 3 views of the sacroiliac joints were acquired. COMPARISON: None FINDINGS: Bones: No bony erosions or ankylosis. No suspicious bony lesions. No fractures. Mild degenerative changes are present within the lower lumbar spine. Soft tissues: Overlying bowel gas pattern is normal. No suspicious soft tissue densities. IMPRESSION: SI joints are widely patent. Reviewed by: Marianna Vincent MD on 08/08/2022 12:31 PM PDT Approved by: Marianna Vincent MD on 08/08/2022 12:31 PM PDT Station ID: [id number]
== END 2022-08-08 09:08 | disposition home or self-care (01) ==
LOC: DI 09:07
PROVIDERS: ATTEND Nurse Practitioner Family
DX: M53.3 Sacrococcygeal disorders, not elsewhere classified (principal)

== ENCOUNTER 2022-11-11 12:21 | Outpatient (CLI) | payer MEDICARE | END 2022-11-11 12:22 | disposition home or self-care (01) | LOC: DI 12:21 | PROVIDERS: ATTEND Podiatrist | DX: Z53.9 Procedure and treatment not carried out, unspecified reason (principal) ==

== ENCOUNTER 2022-11-12 11:32 | Outpatient (CLI) | payer MEDICARE ==
--- NOTE | 2022-11-13 10:07 | XRAY Report ---
PROCEDURE: Foot 3 View RT INDICATIONS: RT FOOT PAIN TECHNIQUE: 3 views of the foot were acquired. COMPARISON: X-ray right foot, 09/15/2021. FINDINGS: Bones: Arthrodesis at the first metatarsophalangeal joint. No fractures or dislocations. No suspici ous bony lesions. Mild osteoarthritic changes. Calcaneal spurring. Soft tissues: No suspicious soft tissue calcifications or masses. Bunionette. IMPRESSION: 1. No acute bony abnormality. 2. Postsurgical changes with arthrodesis at the first metatarsophalangeal joint. 3. Mild osteoarthritis. 4. Calcaneal spurring. 5. Bunionette. Reviewed by: Nirali Jules MD on 11/13/2022 10:06 AM PDT Approved by: Nirali Jules MD on 11/13/2022 10:06 AM PDT Station ID: [id number]
== END 2022-11-12 11:33 | disposition home or self-care (01) ==
LOC: DI.S 11:32
PROVIDERS: ATTEND Podiatrist
DX: M19.071 Primary osteoarthritis, right ankle and foot (principal); M77.31 Calcaneal spur, right foot; M21.621 Bunionette of right foot; Z98.1 Arthrodesis status

== ENCOUNTER 2022-12-11 11:16 | Outpatient (CLI) | payer MEDICARE ==
--- NOTE | 2022-12-11 12:27 | Ultrasound Report ---
PROCEDURE: Abdomen Limited INDICATIONS: RUQ PAIN TECHNIQUE: Real-time focused scanning was performed of the abdomen, with image documentation. COMPARISONS: CT abdomen pelvis 11/19/2020. FINDINGS: Liver: Increased liver echogenicity, commonly mild hepatic steatosis. Gallbladder: Unremarkable. Biliary ducts: Intrahepatic bile ducts are non-dilated. Extrahepatic bile duct caliber measures 7.7 mm with normal tapering of the distal common bile duct measuring 3.4 mm. Normal is 6-7 mm or less i n diameter, or 10 mm or less post-cholecystectomy. Pancreas: Visualized portions of the pancreas are sonographically normal. The pancreatic tail is not well seen secondary overlying bowel gas. Right kidney: Normal in size and echotexture. Right kidney measures 9.6 cm long. No hydronephrosis o r nephrolithiasis. No solid masses. No complex renal cystic lesions which require follow-up. IMPRESSION: Increased hepatic echogenicity is noted, possibly related to the hepatic steatosis but other sources of hepatocellular disease cannot be excluded. Recommend clinical correlation. Reviewed by: Tremaine Alatorre MD on 12/11/2022 12:26 PM PDT Approved by: Tremaine Alatorre MD on 12/11/2022 12:26 PM PDT Station ID: [id number]
== END 2022-12-11 11:17 | disposition home or self-care (01) ==
LOC: DI 11:16
PROVIDERS: ATTEND Registered Nurse
DX: R10.11 Right upper quadrant pain (principal)

== ENCOUNTER 2023-04-14 10:47 | Outpatient (CLI) | payer MEDICARE | END 2023-04-14 10:48 | disposition home or self-care (01) | LOC: RT 10:47 | PROVIDERS: ATTEND Orthopaedic Surgery Orthopaedic Surgery of the Spine | DX: Z01.818 Encounter for other preprocedural examination (principal) | CPT/HCPCS: 93005 ==

== ENCOUNTER 2023-04-24 07:20 | Outpatient (CLI) | payer MEDICARE ==
--- NOTE | 2023-04-24 10:59 | Ultrasound Report ---
PROCEDURE: Aorta Screening INDICATIONS: FAM HIST OF AAA TECHNIQUE: Real time scanning was performed of the aorta and iliac arteries, with image documentatio n. COMPARISON: None. FINDINGS: Aorta: Proximal aortic diameter measures 1.8 cm. Mid-aorta measures 1.5 cm. Distal aortic diameter is 1.4 cm. Iliac arteries: Right common iliac artery measures 0.8 cm. Left common iliac artery measures 0.8 cm . IMPRESSION: No evidence of abdominal aortic aneurysm. Recommended intervals for follow-up imaging of ectatic aortas and abdominal aortic aneurysms, per ACR consensus guidelines: 2.5-2.9 cm: 5 years 3.0-3.4 cm: 3 years 3.5-3.9 cm: 2 years 4.0-4.4 cm: 1 year 4.5-4.9 cm: 6 months + endovascular referral 5.0-5.5 cm: 3-6 months + endovascular referral Reviewed by: Tremaine Alatorre MD on 04/24/2023 10:57 AM PST Approved by: Tremaine Alatorre MD on 04/24/2023 10:57 AM PST Station ID: [id number]
== END 2023-04-24 07:21 | disposition home or self-care (01) ==
LOC: DI 07:20
PROVIDERS: ATTEND Registered Nurse
DX: Z13.6 Encounter for screening for cardiovascular disorders (principal); Z82.49 Family history of ischemic heart disease and other diseases of the circulatory system; M81.0 Age-related osteoporosis without current pathological fracture

== ENCOUNTER 2023-05-07 18:30 | Outpatient (CLI) | payer MEDICARE ==
--- NOTE | 2023-05-08 09:02 | Ultrasound Report ---
PROCEDURE: Renal (Retroperitoneal) INDICATIONS: HEMATURIA TECHNIQUE: Real-time scanning was performed of the retroperitoneal organs, with image documentation. COMPARISON: None. FINDINGS: Kidneys: Kidneys are normal in size. Right kidney measures 9.6 cm long; left kidney measures 0.3 cm long. Right renal cortical thickness is 1.3 cm; left renal cortical thickness is 1.1 cm. No solid masses or hydronephrosis. Bilateral punctate echogenic foci. Bladder: Pre-void bladder volume is 323 mL. Post-void residual is 15.5 mL. Pre-void images demonst rate no intraluminal masses or stones. On pre-void images, ureteral jets are noted with color Dopple r interrogation. (Of note, ureteral jets may not be detectable in up to 25% of cases due to insuffic ient differences in specific gravity between ureteral and bladder urine). Miscellaneous: No free abdominal fluid. IMPRESSION: 1.No hydronephrosis bilaterally. 2.Bilateral punctate echogenic foci in the kidneys may represent tiny nephroliths. Consider a CT KUB for further evaluation. 3.Bladder is unremarkable. Reviewed by: Sree Nick MD on 05/08/2023 9:01 AM PST Approved by: Sree Nick MD on 05/08/2023 9:01 AM PST Station ID: [id number]
== END 2023-05-07 18:31 | disposition home or self-care (01) ==
LOC: DI 18:30
PROVIDERS: ATTEND Urology
DX: R31.21 Asymptomatic microscopic hematuria (principal); R93.422 Abnormal radiologic findings on diagnostic imaging of left kidney; R93.421 Abnormal radiologic findings on diagnostic imaging of right kidney

== ENCOUNTER 2023-06-24 16:35 | Outpatient (CLI) | payer MEDICARE ==
--- NOTE | 2023-06-24 19:33 | CT Report ---
PROCEDURE: Maxillofacial WO INDICATIONS: JAW PAIN, NUMBNESS OF TONGUE TECHNIQUE: Noncontrast 1.5 mm thick axial images acquired from the mandible through the frontal sinuses, with co jose and sagittal reformatting. For radiation dose reduction, the following was used: automated ex posure control, adjustment of mA and/or kV according to patient size. COMPARISON: Correlation is made with head CT, 07/29/2020 FINDINGS: Image quality: Excellent. Bones and teeth: Orbital simmons are intact. Sinus simmons show no fracture or deformity. Nasal bones and septum are intact. There is mild chronic rightward nasal septal deviation Visualized portions of the mandible demonstrate no fractures or subluxation. Zygomatic arches are intact. Pterygoid plates are intact. Visualized portions of the skull base and auditory canals are intact. Sinuses: Paranasal sinuses are aerated, without fluid levels, mucosal thickening, or mucoceles. Mas toid air cells are aerated. Soft tissues: No edema, masses, or fluid collections. No enlarged lymph nodes. No soft tissue lace rations or debris. Vascular: Visualized vascular structures appear normal in the absence of contrast. Bony vascular fo ramina and canals are intact. IMPRESSION: No imaging explanation is found for the patient's presenting symptoms. If there is strong clinical concern for a trigeminal nerve abnormality in this patient with this give n history, then please consider a dedicated skull base protocol MRI (without and with contrast) for f urther evaluation (assuming that there is no contraindication). Reviewed by: Jaswinder Kent MD on 06/24/2023 6:32 PM SHAMIR Approved by: Jaswinder Kent MD on 06/24/2023 6:32 PM INRODNEY Station ID: [id number]
== END 2023-06-24 16:36 | disposition home or self-care (01) ==
LOC: DI 16:35
PROVIDERS: ATTEND Registered Nurse
DX: R68.84 Jaw pain (principal); R20.0 Anesthesia of skin; R43.2 Parageusia

== ENCOUNTER 2023-08-14 11:15 | Outpatient (CLI) | payer MEDICARE ==
--- NOTE | 2023-08-17 09:33 | Mammography Report ---
BILATERAL DIGITAL SCREENING MAMMOGRAM 3D/2D: 08/14/2023 CLINICAL: Routine screening. Comparison is made to exams dated: 04/14/2022 mammogram, 03/29/2021 mammogram, 03/27/2020 mammogram, an d 01/07/2019 mammogram - [facility]. Both breasts are heterogeneously dense, which may obscure small masses (category c / 51-75% glandular tissue). There are benign calcifications in both breasts. No significant masses, calcifications, or other findings are seen in either breast. There has been no significant interval change. IMPRESSION: BENIGN There is no mammographic evidence of malignancy. A 1 year screening mammogram is recommended. Based on the Tyrer Cuzick model (a risk assessment model) the patient's lifetime risk is 13.0% and he r 10 year risk is 7.8%. According to the ACR, ACS, and NCCN guidelines, an annual breast MRI exam junior ng with mammogram is recommended if the patient's lifetime risk is 20% or greater. This exam was interpreted at Station ID: [id number]. NOTE: For mammograms, a report in lay terms will be sent to the patient. Approximately 15% of breast malignancies will not be visualized mammographically. In the management of a palpable breast mass, a negative mammogram must not discourage biopsy of a clinically suspicious lesion. Electronically Signed By: Santiago [email or web address]:08/14/2023 16:02:42 letter sent: No_Letter ACR BI-RADS Category 2: Benign Finding(s) 3342F PARENCHYMAL PATTERN: (D) - The breast(s) demonstrate(s) heterogeneously dense fibroglandular carrie vega. BI-RADS CATEGORY: (2) - 2 RECOMMENDATION: (ANNUAL) - Recommend routine annual screening mammography. [id number] 1 year screening LATERALITY: (B)
== END 2023-08-14 11:16 | disposition home or self-care (01) ==
LOC: DI 11:15
DX: Z12.31 Encounter for screening mammogram for malignant neoplasm of breast (principal); R92.333 Mammographic heterogeneous density, bilateral breasts; R92.1 Mammographic calcification found on diagnostic imaging of breast

== ENCOUNTER 2023-08-19 09:42 | Outpatient (CLI) | payer MEDICARE ==
--- NOTE | 2023-08-19 12:16 | DEXA Report ---
PROCEDURE: Dexa Spine and/or Hip INDICATIONS: OSTEOPOROSIS TECHNIQUE: Dual energy x-ray absorptiometry (DXA) was performed on a [employer]. Regions measur ed are the AP Spine, femoral neck, and if needed forearm. COMPARISON: 07/14/2022, 10/11/2019, 09/23/2017 FINDINGS: Lumbar Spine: Bone Mineral Density: 0.867 g/cm/cm,T score: -2.6. There has been no statistically significant montejo e in bone mineral density since the prior study. Left Femoral Neck: Bone Mineral Density: 0.705 g/cm/cm, T score: -2.4. Left Hip: Bone Mineral Density: 0.705 g/cm/cm,T score: -2.4. Since the most recent prior study, there has been a statistically significant decrease in bone mineral density by -6 percent. Left Forearm: Bone Mineral Density: 0.739 g/cm/cm, T score: -1.6. (T score greater or equal to -1.0: NORMAL) (T score from -1.1 to -2.4: OSTEOPENIA) (T score less than or equal to -2.5 to: OSTEOPOROSIS) Impression: By WHO criteria, this patient has osteoporosis. No statistical interval change in bone mineral density of the lumbar spine. Interval statistical decr ease in bone mineral density of the hip. Patients with diagnosis of osteoporosis or osteopenia should have regular bone mineral density assess ment. For those eligible for Medicare, routine testing is allowed once every 2 years. Testing frequ ency can be increased for patients who have rapidly progressing disease or for those who are receivin g medical therapy to restore bone mass. Reviewed by: Praneeth Reis MD on 08/19/2023 12:14 PM PDT Approved by: Praneeth Reis MD on 08/19/2023 12:14 PM PDT Station ID: [id number]
== END 2023-08-19 09:43 | disposition home or self-care (01) ==
LOC: DI 09:42
PROVIDERS: ATTEND Registered Nurse
DX: M81.0 Age-related osteoporosis without current pathological fracture (principal)